=== PATIENT | female | born 1950 | race Caucasian/White ===

== ENCOUNTER 2021-06-06 18:10 | Inpatient (IN) | payer MEDICARE ==
[2021-06-06] VITALS (14 sets, daily range): BP systolic 96–184; BP diastolic 57–120
[~2021-06-06] VITALS: Ht 160 cm; Wt 108.0 kg
--- NOTE | 2021-06-06 18:10 | NUR ---
Arrival: Pt. arrived via EMS; Pt is alert and oriented x4, oriented pt to room and place. To obtain EKG stat and send to Dr. Best. HR in 140s-150s afib. BP132/78. RR 32. Notified Dr. Best and Michael of pt arrival. Oriented pt to use of call light.
--- NOTE | 2021-06-06 18:56 | PCM.EKG ---
[facility] Test Date: 2021-06-06 Test Time: 18:17:21 Pat Name: DUNG HEDRICK Department: Room: ICU6 A Gender: F Public Information Relations Manager: : 1950 Requested By: EMELYN GALICIA Order Number: [id number] Reading MD: Measurements Intervals [place] Rate: 137 P: [place]: QRS: 57 QRSD: 71 T: 91 QT: 282 QTc: 426 Interpretive Statements Atrial fibrillation Nonspecific repol abnormality, diffuse leads Baseline wander in lead(s) V1 No previous ECG available for comparison Please click the below link to view image of tracing.
--- NOTE | 2021-06-06 19:10 | NUR ---
Received verbal report from outgoing nurse Cammie Ochoa RN. Pt in bed awake alert and stating pain in R lateral neck and pointed to R hip and stated she fell 4 days ago. Charge nurse at bedside and matter was addressed to physician Dr Sams at bed side. Pt orded consult with cardiology and Hospitalist. Assumed care of pt with other staff in room to assist in pt care.
[2021-06-06] MEDS ORDERED: HEPARIN-D5W 20,000 UNIT/500 ML 500 ML IV SCH (19:30)
[2021-06-06] MEDS ORDERED: HEPARIN IV ONE (19:30)
[2021-06-06] MEDS ORDERED: CORDARONE ONE ×2 (19:39→19:40)
[2021-06-06] MEDS ORDERED: NS 250ML 250 ML ONE (19:40)
[2021-06-06] MEDS ORDERED: CORDARONE 150 MG in D5W 100ML 100 ML IV ONE (19:50)
--- NOTE | 2021-06-06 19:50 | PCM.HP ---
History of Present Illness Reason for Visit: Shortness of breath and chest pain History of Present Illness 70-year-old female with past medical history of coronary artery disease, cardiac stent, hypertension, diabetes, chronic kidney disease stage IV, hyperlipidemia, among others presented to an outside emergency room with shortness of breath and chest pain for the last 3 days. Work-up in the emergency room patient was found to be in A. fib with RVR with heart rate in the 170s. High-sensitivity troponin elevated. Requested transfer the patient to our medical facility for further management and cardiology consultation. In the emergency room patient received metoprolol, Plavix, Lovenox. When the patient arrived to our intensive care unit patient was still in A. fib with RVR with heart rate in the 140s. Fruit Harvester consulted. Patient is being admitted hospital for further management. Past Medical History Cardiac: CAD, HTN, Hyperlipidemia Endocrine: Diabetes Past Surgical History: No pertinent hx Past Social History Smoke: No Alcohol: none Review of Systems Respiratory: Shortness of breath Cardiovascular: Chest Pain, Palpitations Allergies: Coded Allergies: Sulfa (Sulfonamide Antibiotics) (Verified Allergy, Unknown, 06/06/21) Exam Vital Signs Vital Signs Date Time Temp Pulse Resp B/P (MAP) Pulse Ox O2 Delivery O2 Flow Rate FiO2 06/06/21 18:57 98.8 143 37 06/06/21 18:45 132/86 (101) General Appearance: Oriented X3, moderate distress HEENT: Atraumatic, PERRLA Respiratory: Other (Few bibasilar crackles) Cardiovascular: Other (Irregular irregular tachycardic) Extremities: No clubbing, No cyanosis Skin: No lesions Neuro: Normal speech, Normal tone Psych/Mental Status: Mental status NL, Mood NL Assessment/Plan Assessment/Plan Assessment/Plan 70-year-old female with past medical history of coronary artery disease, cardiac stent, hypertension, diabetes, chronic kidney disease stage IV, hyperlipidemia, among others presented to an outside emergency room with shortness of breath and chest pain for the last 3 days. Work-up in the emergency room patient was found to be in A. fib with RVR with heart rate in the 170s. High-sensitivity troponin elevated. Requested transfer the patient to our medical facility for further management and cardiology consultation. In the emergency room patient received metoprolol, Plavix, Lovenox. When the patient arrived to our intensive care unit patient was still in A. fib with RVR with heart rate in the 140s. Fruit Harvester consulted. Patient is being admitted hospital for further management. Plan admit to ICU Consult cardiology for evaluation further recommendations We will start IV IV amiodarone as per cardiology Heparin drip 2D echo We will continue to trend troponin We will check electrolytes, Magnesium, BNPand replete as needed GI prophylaxis pantoprazole DVT prophylaxis Heparin Reconcile home meds Expect length of stay more than 2 midnights Patient presenting with potentially life-threatening condition, critical care time spent examining the patient, reviewing labs, images, discussing the case with emergency room physician, theater company producer, LOCAL SALES MANAGER, documentation 70 minutes Problems: (1) NSTEMI (non-ST elevated myocardial infarction) ICD Code: I21.4 - Non-ST elevation (NSTEMI) myocardial infarction SNOMED: 43448313 (2) Atrial fibrillation, rapid ICD Code: I48.91 - Unspecified atrial fibrillation SNOMED: 755485654 (3) CKD stage 4 due to type 1 diabetes mellitus ICD Code: E10.22 - Type 1 diabetes mellitus with diabetic chronic kidney disea se; N18.4 - Chronic kidney disease, stage 4 (severe) SNOMED: 91054075, 04060398171599 (4) Diabetes ICD Code: E11.9 - Type 2 diabetes mellitus without complications SNOMED: 31394231 MATT SERRATO MD Jun 06, 2021 19:50
[2021-06-06 19:58] LABS: MEAN CORP HGB 29.1 pg (26-34); RED CELL DISTRIBUTION WIDTH 14.6 % (11.5-14.5)
[2021-06-06] MEDS ORDERED: NEXTERONE 360 MG/200 ML BAG 200 ML IV SCH (20:00)
[2021-06-06] MEDS ORDERED: DEXTROSE 50%-WATER SYRINGE IV PRN (20:00)
[2021-06-06] MEDS ORDERED: D5W 1000ML 1,000 ML IV PRN (20:00)
[2021-06-06] MEDS ORDERED: D5W IV SCH (20:00)
[2021-06-06] MEDS ORDERED: CORDARONE IV SCH (20:00)
--- NOTE | 2021-06-06 20:00 | NUR ---
16FR CHAUHAN CATHETER INSERTED USING STERILE TECHNIQUE. TUBING SECURED TO RT LEG USING STAT-LOCK. CATHETER IS PATENT AND DRAINING YELLOW URINE TO GRAVITY. PT TOLERATED PROCEDURE WELL.
[2021-06-06 20:10] LABS: CARBON DIOXIDE 25.3 mmol/L (20.0-32)
[2021-06-06 20:39] LABS: BILIRUBIN,URINE NEGATIVE (NEGATIVE); UROBILINOGEN,URINE 0.2 E.U./dL (0.2)
--- NOTE | 2021-06-06 20:58 | DIREP ---
PROCEDURE:CHEST 1 VIEW COMPARISON:None. INDICATIONS:sob FINDINGS: LUNGS/PLEURA:Mild interstitial thickening is seen throughout both lungs with infiltrate in the left infrahilar region of the left lung. VASCULATURE:Normal. Unremarkable pulmonary vasculature. CARDIAC:Normal. No cardiac silhouette abnormality or cardiomegaly. MEDIASTINUM:Normal. No visible mass or adenopathy. BONES:Normal. No fracture or visible bony lesion. OTHER:Negative. CONCLUSION:There are mild increased interstitial markings bilaterally with infiltrate in the left infrahilar region of the left lung. Dictated by: Camacho Flores M.D. on 06/06/2021 at 08:56 PM
[2021-06-06] MEDS: HUMALOG SQ SCH (21:00)
[2021-06-06] MEDS ORDERED: LASIX IV STA ×2 (22:16→22:40)
[2021-06-06] MEDS ORDERED: TOPROL XL PO STA (22:16)
--- NOTE | 2021-06-06 22:50 | NUR ---
TELEPHONE ORDER PER DR GALICIA: CONTINUE TO INFUSE AMIODARONE GTT @ 1MG/MIN. TELEPHONE ORDER RBAV.
--- NOTE | 2021-06-06 23:45 | NUR ---
pt cont to complaint of headache 9/10 medicated per mar
[2021-06-07] VITALS (56 sets, daily range): BP systolic 94–162; BP diastolic 47–111
[2021-06-07] MEDS ORDERED: NEXTERONE 360 MG/200 ML BAG 200 ML IV SCH (02:00)
[2021-06-07] MEDS: MORPHINE SULFATE IV PRN ×2 (03:43→23:45)
[2021-06-07] MEDS: TYLENOL PO PRN ×2 (03:53→11:19)
[2021-06-07] MEDS: HUMALOG SQ SCH ×4 (07:30→22:00)
[2021-06-07 07:51] LABS: BASOPHIL % 0.3 % (0.0-0.2); EOSINOPHIL % 0.4 % (0.0-5.0); LYMPHOCYTES # 2.1 10^3/uL1 (1.0-4.8); LYMPHOCYTES % 19.9 % (24.0-44.0); MEAN CORP HGB 29.3 pg (26-34); MONOCYTES # 0.6 10^3/uL (0.3-0.8); MONOCYTES % 5.2 % (5.0-12.0); NEUTROPHIL # 7.8 10^3/uL (1.8-7.7); NEUTROPHILS % 74.2 % (41.0-85.0); RED CELL DISTRIBUTION WIDTH 14.6 % (11.5-14.5)
[2021-06-07 07:54] LABS: CARBON DIOXIDE 28.1 mmol/L (20.0-32)
--- NOTE | 2021-06-07 08:42 | PCM.EKG ---
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
[2021-06-07] MEDS: ZESTRIL PO SCH (09:00)
[2021-06-07] MEDS: PROTONIX PO SCH (09:00)
[2021-06-07] MEDS: LASIX IV SCH (09:00)
[2021-06-07] MEDS: ASPIRIN PO SCH (09:00)
[2021-06-07] MEDS ORDERED: TOPROL XL PO SCH (09:00)
--- NOTE | 2021-06-07 11:07 | PRM.PN ---
Subjective Subjective Date: Jun 07, 2021 Time: 09:00 Subjective Patient remains short of breath. Tachycardic. Patient also complained of right hip pain. She said that she fell a few days prior to presentation to the emergency room. X-ray of the hip was not done in the emergency room. Will or claudia. Also get an x-ray of his cervical spine because she is complaining of right neck pain. Patient History: Alzheimer's disease G8 SISTER Cerebrovascular disorder G8 MOTHER G8 FATHER Chronic obstructive pulmonary disease G8 BROTHER Congestive heart failure G8 MOTHER G8 FATHER Diabetes mellitus G8 MOTHER G8 FATHER FH: IA (myocardial infarction) G8 MOTHER G8 FATHER G8 BROTHER FH: cancer G8 BROTHER G8 SISTER G8 SISTER FH: cancer G8 BROTHER G8 SISTER G8 SISTER Unknown Review of Systems Respiratory: Shortness of breath Cardiovascular: Chest Pain, Palpitations Musculoskeletal: other (Hip pain), neck pain Allergies: Coded Allergies: Sulfa (Sulfonamide Antibiotics) (Verified Allergy, Unknown, 06/06/21) Objective Vitals and I/O Vital Sign - Last 24 Hours 06/06/21 06/06/21 06/06/21 06/06/21 18:42 18:45 18:57 19:15 Temp 98.8 98.8 Pulse 141 141 143 Resp 45 38 37 B/P (MAP) 132/86 (101) 06/06/21 06/06/21 06/06/21 06/06/21 19:15 19:30 19:32 19:45 Pulse 138 157 153 141 Resp 39 49 46 34 B/P (MAP) 169/120 (136) 143/102 (116) 06/06/21 06/06/21 06/06/21 06/06/21 20:00 20:00 20:01 20:15 Pulse 136 150 160 Resp 33 20 20 B/P (MAP) 162/119 (133) O2 Delivery Room Air 06/06/21 06/06/21 06/06/21 06/06/21 20:16 20:30 20:45 21:00 Pulse 151 143 139 139 Resp 28 31 30 35 B/P (MAP) 140/90 (107) 171/111 (131) 161/87 (111) 184/85 (118) 06/06/21 06/06/21 06/06/21 06/06/21 21:45 22:16 22:30 22:31 Pulse 138 148 149 Resp 16 11 27 B/P (MAP) 150/75 96/60 (72) Pulse Ox 96 O2 Delivery Nasal Cannula O2 Flow Rate 2.00 06/06/21 06/06/21 06/06/21 06/06/21 22:43 22:45 22:47 22:49 Pulse 151 148 147 144 Resp 71 98 82 B/P (MAP) 150/75 (100) 06/06/21 06/06/21 06/06/21 06/06/21 23:00 23:01 23:15 23:17 Pulse 140 137 127 152 Resp 92 35 B/P (MAP) 165/81 (109) 149/57 (87) Pulse Ox 97 96 06/06/21 06/06/21 06/06/21 06/06/21 23:30 23:31 23:45 23:46 Pulse 159 139 161 160 Resp 34 34 B/P (MAP) 140/64 (89) 143/70 (94) Pulse Ox 95 95 96 96 06/07/21 06/07/21 06/07/21 06/07/21 00:00 00:01 00:01 00:15 Pulse 151 158 151 Resp 34 28 B/P (MAP) 124/68 (86) Pulse Ox 97 97 97 O2 Delivery Room Air 06/07/21 06/07/21 06/07/21 06/07/21 00:16 00:30 00:31 00:45 Pulse 151 151 127 164 B/P (MAP) 130/111 (117) 132/83 (99) Pulse Ox 97 98 96 97 06/07/21 06/07/21 06/07/21 06/07/21 00:47 01:00 01:01 01:15 Pulse 158 163 154 148 Resp 69 36 29 B/P (MAP) 162/88 (112) 139/75 (96) Pulse Ox 97 99 97 97 06/07/21 06/07/21 06/07/21 06/07/21 01:16 01:30 01:31 01:45 Pulse 154 152 150 161 Resp 34 46 B/P (MAP) 157/86 (109) 148/106 (120) Pulse Ox 97 95 96 95 06/07/21 06/07/21 06/07/21 06/07/21 01:46 02:00 02:01 02:15 Pulse 147 161 150 154 Resp 31 31 30 B/P (MAP) 135/70 (91) 121/76 (91) Pulse Ox 95 98 95 95 06/07/21 06/07/21 06/07/21 06/07/21 02:16 02:30 02:31 02:45 Pulse 158 151 146 152 Resp 30 28 28 30 B/P (MAP) 142/74 (96) 133/87 (102) Pulse Ox 96 97 97 94 06/07/21 06/07/21 06/07/21 06/07/21 02:46 03:00 03:02 03:46 Pulse 153 148 142 150 Resp 31 35 32 40 B/P (MAP) 150/87 (108) 110/82 (91) 138/104 (115) Pulse Ox 94 90 91 93 06/07/21 06/07/21 06/07/21 06/07/21 04:00 04:01 04:15 09:00 Pulse 164 158 163 150 Resp 28 31 27 B/P (MAP) 98/49 (65) 116/73 (87) 131/80 Pulse Ox 96 96 97 06/07/21 06/07/21 09:00 09:00 B/P (MAP) 131/80 131/80 Intake and Output 06/07/21 06:59 Intake Total 103 ml Output Total 2520 ml Balance -2417 ml General: Oriented X3, moderate distress HEENT: Atraumatic, PERRLA Lungs: Other (Few bibasilar crackles) Heart: Other (Irregular irregular tachycardic) Extremities: No clubbing, No cyanosis, Other (Hip tenderness) Neuro: Normal speech, Normal tone Psych/Mental Status: Mental status NL, Mood NL All Results(Lab/Rad) Laboratory Tests Test 06/06/21 19:32 06/06/21 21:56 06/07/21 01:26 06/07/21 07:27 White Blood Count 9.6 10^3/uL 10.6 10^3/uL Red Blood Count 4.16 10^6/uL 4.06 10^6/uL Hemoglobin 12.1 g/dL 11.9 g/dL Hematocrit 38.3 % 37.8 % Mean Corpuscular Volume 92.1 fL 93.1 fL Mean Corpuscular Hemoglobin 29.1 pg 29.3 pg Mean Corpuscular Hemoglobin Concent 31.6 g/dL 31.5 g/dL Red Cell Distribution Width 14.6 % 14.6 % Platelet Count 168 10^3/uL 180 10^3/uL Mean Platelet Volume 11.3 fL 11.3 fL Sodium Level 143 mmol/L 140 mmol/L Potassium Level 4.1 mmol/L 4.1 mmol/L Chloride Level 107.0 mmol/L 104.0 mmol/L Carbon Dioxide Level 25.3 mmol/L 28.1 mmol/L Anion Gap 14.8 12.0 Blood Urea Nitrogen 28 mg/dL 29 mg/dL Creatinine 1.92 mg/dL 2.43 mg/dL Estimated GFR () 31.3 23.9 Est GFR (CKD-EPI)(Non-Afr Cymraes) 25.9 19.7 BUN/Creatinine Ratio 14.0 11.0 Glucose Level 121 mg/dL 183 mg/dL Calcium Level 8.7 mg/dL 8.9 mg/dL Magnesium Level 1.7 mg/dL Total Bilirubin 0.6 mg/dL 0.9 mg/dL Aspartate Amino Transf (AST/SGOT) 14 U/L 41 U/L Alanine Aminotransferase (ALT/SGPT) 24 U/L 31 U/L Alkaline Phosphatase 118 U/L 126 U/L Troponin I High Sensitivity 225 ng/L 220 ng/L 176 ng/L Pro-B-Type Natriuretic Peptide 5159 pg/mL Total Protein 7.2 g/dL 7.1 g/dL Albumin 2.9 g/dL 2.7 g/dL Globulin 4.3 4.4 Albumin/Globulin Ratio 0.674 0.613 Thyroid Stimulating Hormone (TSH) 3.598 mIU/mL Bedside Glucose 121 Activated Partial Thromboplast Time 31.9 SEC 32.9 SEC Neutrophils (%) (Auto) 74.2 % Lymphocytes (%) (Auto) 19.9 % Monocytes (%) (Auto) 5.2 % Neutrophils # (Auto) 7.8 10^3/uL Lymphocytes # (Auto) 2.10 10^3/uL1 Monocytes # (Auto) 0.6 10^3/uL Absolute Immature Granulocyte (auto 0.03 10^3 u/L Absolute Eosinophils (auto) 0.0 10^3/uL Immature Granulocytes % 0.30 % Eosinophils % 0.4 % Basophils % 0.3 % Basophils # 0.0 10^3/uL Current Medications Medications (Trade) Dose Ordered Sig/Deloris Route PRN Reason Start Time Stop Time Status Last Admin Dose Admin Heparin Sodium (Porcine) (Heparin) 5,000 unit OT ONCE IV 06/06/21 19:30 06/06/21 19:38 DC Heparin Sodium/ Dextrose 500 ml @ 0 mls/hr TITRATE IV 06/06/21 19:30 07/06/21 19:29 06/05/21 21:40 Amiodarone HCL/ Dextrose 200 ml @ 34 mls/hr OT IV 06/07/21 02:00 07/07/21 01:59 Amiodarone HCL/ Dextrose 200 ml @ 17 mls/hr OT IV 06/06/21 20:00 07/06/21 19:59 Amiodarone HCl 150 mg/Dextrose 103 ml @ 600 mls/hr OT ONCE IV 06/06/21 19:50 06/06/21 20:00 DC 06/06/21 20:38 Amiodarone HCl (Nexterone) 150 mg STK-MED ONCE .ROUTE 06/06/21 19:39 06/06/21 19:40 DC Acetaminophen (Tylenol) 325 mg Q4H PRN PO PAIN 1 - 3 06/06/21 20:00 07/06/21 19:59 06/07/21 03:53 Pantoprazole Sodium (Protonix) 40 mg DAILY PO 06/07/21 09:00 07/07/21 08:59 06/07/21 09:00 Insulin Human Lispro (Humalog) 0-140 0 Units 141-200... ACHS SQ 06/06/21 21:00 07/06/21 20:59 06/07/21 07:30 Dextrose 1,000 ml @ 100 mls/hr Q10H PRN IV hypoglycemia 06/06/21 20:00 07/06/21 19:59 Dextrose (Dextrose 50%-Water Syringe) 25 ml PRN PRN IV hypoglycemia 06/06/21 20:00 07/06/21 19:59 Aspirin (Aspirin) 325 mg DAILY PO 06/07/21 09:00 07/07/21 08:59 06/07/21 09:00 Amiodarone HCl (Nexterone) 150 mg STK-MED ONCE .ROUTE 06/06/21 19:40 2/8/22 19:41 DC Sodium Chloride 250 ml @ STK-MED ONCE .ROUTE 06/06/21 19:40 06/06/21 19:41 DC Metoprolol Succinate (Toprol Xl) 50 mg STAT STAT PO 06/06/21 22:16 06/06/21 22:30 DC Metoprolol Succinate (Toprol Xl) 50 mg DAILY PO 06/07/21 09:00 07/07/21 08:59 06/07/21 09:00 Furosemide (Lasix) 40 mg DAILY IV 06/07/21 09:00 07/07/21 08:59 06/07/21 09:00 Furosemide (Lasix) 40 mg STAT STAT IV 06/06/21 22:16 06/06/21 22:30 DC 06/06/21 22:16 Lisinopril (Zestril) 20 mg DAILY PO 06/07/21 09:00 07/07/21 08:59 06/07/21 09:00 Furosemide (Lasix) 40 mg STAT STAT IV 06/06/21 22:40 06/06/21 22:45 DC Morphine Sulfate (Morphine Sulfate) 1 mg Q4H PRN IV PAIN 7 - 10 06/06/21 23:00 07/06/21 22:59 06/07/21 03:43 Assessment/Plan Assessment/Plan Assessment/Plan 70-year-old female with past medical history of coronary artery disease, cardiac stent, hypertension, diabetes, chronic kidney disease stage IV, hyperlipidemia, among others presented to an outside emergency room with shortness of breath and chest pain for the last 3 days. Work-up in the emergency room patient was found to be in A. fib with RVR with heart rate in the 170s. High-sensitivity troponin elevated. Requested transfer the patient to our medical facility for further management and cardiology consultation. In the emergency room patient received metoprolol, Plavix, Lovenox. When the patient arrived to our intensive care unit patient was still in A. fib with RVR with heart rate in the 140s. Wire Coating Machine Operator consulted. Patient is being admitted hospital for further management. Plan admit to ICU Wire Coating Machine Operator consulted Started on Lasix, creatinine trending up We will consult nephrology, patient has YARED/CKD. Heparin drip Rate and rhythm control as per cardiology Pelvic x-ray Cervical spine x-ray DVT prophylaxis Heparin Patient presenting with potentially life-threatening condition, critical care time spent examining the patient, reviewing labs, images, discussing the case with PRODUCTION LINE WELDER, documentation 35 minutes. Patient presenting with potentially life-threatening condition, critical care time spent examining the patient, reviewing labs, images, discussing the case with emergency room physician, chlorination operator, PRODUCTION LINE WELDER, documentation 70 minutes Problems: (1) NSTEMI (non-ST elevated myocardial infarction) ICD Code: I21.4 - Non-ST elevation (NSTEMI) myocardial infarction SNOMED: 95880451 (2) Atrial fibrillation, rapid ICD Code: I48.91 - Unspecified atrial fibrillation SNOMED: 048413424 (3) CKD stage 4 due to type 1 diabetes mellitus ICD Code: E10.22 - Type 1 diabetes mellitus with diabetic chronic kidney disease; N18.4 - Chronic kidney disease, stage 4 (severe) SNOMED: 92347003, 35049309579605 (4) Diabetes ICD Code: E11.9 - Type 2 diabetes mellitus without complications SNOMED: 54527668 MATT SERRATO MD Jun 07, 2021 11:07
[2021-06-07] MEDS ORDERED: BETAPACE ONE (13:05)
[2021-06-07] MEDS ORDERED: BETAPACE PO STA (13:28)
[2021-06-07] MEDS ORDERED: SUBLIMAZE IV ONE (13:30)
--- NOTE | 2021-06-07 18:20 | PCM.EKG ---
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
--- NOTE | 2021-06-07 18:59 | DIREP ---
PROCEDURE:XR SPINE CERVICAL 2 OR 3 VIEWS COMPARISON:None. INDICATIONS:fall TECHNIQUE:AP, lateral, swimmer's, and dens views of the cervical spine are provided. FINDINGS: ALIGNMENT:Straightening of the spine may be positional or secondary to muscle spasm. VERTEBRAE:Endplate osteophytes throughout the cervical spine. No visible compression fracture. DISK SPACES:Normal. CERVICAL RIBS:None. OTHER:Normal. CONCLUSION:Mild degenerative changes. No visible compression fracture. Not all of the lower spinous processes are well seen. If there is point tenderness at the spinous processes recommend cervical spine CT correlation to exclude fracture. Dictated by: Davin Carlson M.D. on 06/07/2021 at 06:57 PM
--- NOTE | 2021-06-07 19:00 | DIREP ---
PROCEDURE:XRAY PELVIS 1-2 VWS COMPARISON:None. INDICATIONS:fall FINDINGS: BONES:Bilateral acetabular osteophyte formation. Sclerosis and osteophytes at the symphysis pubis. Enthesophyte at the ischial tuberosities, iliac crests and greater trochanters. JOINTS:Normal. SOFT TISSUES:Normal. OTHER:No additional findings. CONCLUSION:Degenerative changes. No visible displaced fracture. Dictated by: Davin Carlson M.D. on 06/07/2021 at 06:58 PM
--- NOTE | 2021-06-07 19:00 | NUR ---
Report received. pt A&OX4, c/o neck pain and body soreness, denies chest pain and SOB. Heparin drip infusing at 1400u/hr. carter with adequate urinary output. will continue to monitor
--- NOTE | 2021-06-07 21:05 | PCM.ECHO ---
APPROVED REPORT EXAM: Comprehensive 2D, Doppler, and color-flow Echocardiogram. Patient Location: IN-PATIENT Indications Atrial Fibrillation 2D Dimensions LVOT Diameter 2.16 (1.8-2.4cm) LVEF(%) 35.85 (>50%) M-Mode Dimensions RVDd 1.65 (2.1-3.2cm) Left Atrium(MM) 4.50 (2.5-4.0cm) IVSd 1.15 (0.7-1.1cm) Aortic Root 2.75 (2.2-3.7cm) LVDd 3.60 (4.0-5.6cm) Aortic Cusp Exc 1.35 (1.5-2.0cm) PWd 0.55 (0.7-1.1cm) MV EPSS 0.49 (<0.5cm) IVSs 1.60 cm FS (%) 19.30 % LVDs 2.90 (2.0-3.8cm) ESV(Teich) 32.88 ml PWs 1.40 cm LVEF(%) 40.57 (>50%) Volumes Biplane 2D LV Volumes Biplane 2D LA Volumes LVEDv A4C 61.53 mL LA ESV Index LVESv A4C 39.47 mL Aortic Valve AoV Peak Earl. 1.20 m/s AoV VTI 19.05 cm AO Peak GR. 6.10 mmHg AO Mean GR. 3.80 mmHg LVOT VTI 15.54 cm LVOT Peak Earl. 0.84 m/s MARVEL(VTI)/BSA 2.98 cm2/m2 MARVEL (VTI) 2.98 cm2 Mitral Valve MR Peak Gr. 87.45mmHg Pulmonary Valve PV Peak Velocity 0.75m/s PV Peak Grad. 2.45mmHg RVOT VTI 12.06cm Tricuspid Valve TR P. Velocity 2.70m/s RAP ESTIMATE 10.00mmHg TR Peak Gr. 29.63mmHg RVSP 39.63mmHg LEFT VENTRICLE The left ventricle is normal size. Left ventricular systolic function is moderately decreased. There is normal left ventricular wall thickness. Significant regional wall motion abnormalities are noted. There is no ventricular septal defect visualized. No left ventricle thrombus noted on this study. LVEF is 40%. RIGHT VENTRICLE The right ventricle is normal size. Right ventricular systolic function is moderately reduced. There is normal right ventricular wall thickness. ATRIA The left atrium size is normal. Right atrium is severely dilated. The interatrial septum is intact with no evidence for an atrial septal defect. AORTIC VALVE The aortic valve is normal in structure. There is no aortic valvular stenosis. Moderate aortic regurgitation. There is no aortic valvular vegetation. MITRAL VALVE The mitral valve is normal in structure. There is no mitral valve stenosis. Severe mitral regurgitation. There is no evidence of mitral valve vegetations. TRICUSPID VALVE The tricuspid valve is normal in structure. There is no tricuspid valve stenosis. Moderate to severe tricuspid regurgitation Moderate pulmonary hypertension. There is no tricuspid valve vegetations. PULMONIC VALVE Pulmonic valve is not well visualized. There is no pulmonic valvular stenosis. Moderate pulmonic regurgitation. GREAT VESSELS The aortic root is normal in size. Pulmonary artery is not well visualized. Aortic arch is not well visualized. IVC is not well visualized. PERICARDIUM There is no pericardial effusion. There is no pleural effusion. Other Information Study Quality: Fair <Conclusion> Left ventricular systolic function is moderately decreased. LVEF is 40%. Significant regional wall motion abnormalities are noted. Right atrium is severely dilated. Moderate aortic regurgitation. Severe mitral regurgitation. Moderate to severe tricuspid regurgitation Moderate pulmonary hypertension. Moderate pulmonic regurgitation. Electronically signed by : EMELYN GALICIA. 06/07/2021 21:04:25
[2021-06-07] MEDS: BETAPACE PO SCH (21:10)
--- NOTE | 2021-06-07 22:00 | NUR ---
Heparin drip increased to 1500 u/hr per protocol
--- NOTE | 2021-06-07 22:12 | CNH ---
DATE OF CONSULTATION: 06/07/2021 DICTATOR NAME: EMELYN GALICIA DO REASON FOR CONSULTATION: New-onset atrial fibrillation with rapid ventricular response/acute non-ST elevation myocardial infarction. HISTORY OF PRESENT ILLNESS: This is a 70-year-old female who initially presented to an outside standalone Emergency Room with progressively worsening shortness of breath and chest pain, which she has been experiencing 3 days prior. Upon presentation, EKG done in the outside facility revealed atrial fibrillation with rapid ventricular response. She was also noted to have elevated troponins. She was then transferred to [facility] for cardiac evaluation. At this time, she is chest pain free. She has been started on amiodarone drip as well as heparin drip. Initial high-sensitive troponin was noted to be 225, but has slowly trended down to 176. PAST MEDICAL HISTORY: Significant for: 1. Coronary artery disease, status post PCI in the past -- 15 years ago. 2. Hypertension. 3. Diabetes mellitus. 4. Chronic kidney disease, stage 4. 5. Hyperlipidemia. PAST SURGICAL HISTORY: Cardiac catheterization with PCI done 15 years ago to an unknown vessel. ALLERGIES: SULFONAMIDE ANTIBIOTICS. MEDICATIONS: She takes at home, see MAR. FAMILY HISTORY: She denies any family history of premature coronary artery disease or sudden cardiac . SOCIAL HISTORY: She denies tobacco use, denies illicit drug use, denies alcohol use. REVIEW OF SYSTEMS: As per HPI and as per previous records. All systems reviewed, negative for interval change. PHYSICAL EXAMINATION: VITAL SIGNS: Blood pressure is 131/80, respiratory rate is 18, pulse is 150, pulse oximetry is 98% on 2 liters. GENERAL: She is in no apparent distress, alert and oriented x 3. HEENT: Normocephalic, atraumatic. Extraocular muscles intact. Pupils equally round, reactive to light and accommodation. CARDIAC: S1, S2, irregularly irregular. No gallops, murmurs, rubs or clicks. LUNGS: Clear to auscultation bilaterally. No wheezing, rhonchi or rales. ABDOMEN: Soft, obese, nontender, nondistended. Positive bowel sounds in all 4 quadrants. EXTREMITIES: No cyanosis, no clubbing, +1 pitting edema bilaterally. NEUROLOGIC: No neurological deficits. Sensation is intact. IMPRESSION: 1. New-onset atrial fibrillation with rapid ventricular response. 2. CHADS2-VASc score of 8. 3. New-onset decompensated heart failure secondary to unknown etiology at this time. 4. Known history of coronary artery disease, status post percutaneous coronary intervention in the past to an unknown vessel. 5. Hypertension. 6. Hyperlipidemia. 7. Diabetes mellitus. 8. Chronic kidney disease, stage 4. 9. Morbid obesity. RECOMMENDATIONS: This is a 70-year-old female who was transferred from an outside standalone ER where she presented with atrial fibrillation with rapid ventricular response as well as decompensated heart failure. She is currently on amiodarone drip. I am going to start her on sotalol 80 mg p.o. b.i.d. She was initially on Toprol-XL, which has since been discontinued. She will be started on Lasix 40 mg IV daily, strict I's and O's, daily weights as well as fluid restriction to 1 liter a day. She will also be kept on sodium restriction. She will be started on lisinopril 20 mg p.o. daily. I would obtain a 2D echo to evaluate her left ventricular ejection fraction and structural integrity of her heart. I will check a thyroid panel. She is currently on heparin drip given her high CHADS2-VASc score. Eventually, she would benefit from oral anticoagulation for primary prevention of systemic thromboembolism. The goal at this time is to keep her heart rate less than 120 beats per minute. She will be kept on sotalol 80 mg p.o. b.i.d. Eventually, when she becomes euvolemic, she will be set up for left heart catheterization to rule out an ischemic substrate. I would recommend to continue to trend her troponins. Initial set of troponin was 225, but has trended down to 176. Further recommendations will be made based on her overall clinical course. Markell FREDERICK D.O. DR: PALOMA MAGÑAA: [id number] RECEIPT: [id number]
[2021-06-08] VITALS (29 sets, daily range): BP systolic 98–149; BP diastolic 50–82
--- NOTE | 2021-06-08 | NUR ---
pt placed NPO for planned procedure in the AM.
--- NOTE | 2021-06-08 02:21 | NUR ---
Lab at bedside. APTT obtained , will monitor results.
[2021-06-08 02:31] LABS: BASOPHIL % 0.4 % (0.0-0.2); EOSINOPHIL # 0.1 10^3/uL (0.0-0.2); EOSINOPHIL % 0.8 % (0.0-5.0); LYMPHOCYTES % 26.9 % (24.0-44.0); MEAN CORP HGB 29.1 pg (26-34); MONOCYTES # 0.5 10^3/uL (0.3-0.8); MONOCYTES % 4.3 % (5.0-12.0); NEUTROPHIL # 7.3 10^3/uL (1.8-7.7); NEUTROPHILS % 67.3 % (41.0-85.0); PLATELET COUNT 190 10^3/uL (150-400); RED CELL DISTRIBUTION WIDTH 14.7 % (11.5-14.5)
[2021-06-08 06:13] LABS: CARBON DIOXIDE 23.5 mmol/L (20.0-32)
--- NOTE | 2021-06-08 06:56 | NUR ---
PTT PER NIGHT RN, NEXT PTT IS DUE AT 0730, 4 HOURS POST LAST HEPARIN INCREASE.
[2021-06-08] MEDS: HUMALOG SQ SCH ×4 (07:34→21:00)
[2021-06-08] MEDS ORDERED: XYLOCAINE ONE (08:43)
[2021-06-08] MEDS ORDERED: VERSED ONE (08:44)
[2021-06-08] MEDS ORDERED: SUBLIMAZE ONE (08:44)
[2021-06-08] MEDS: ASPIRIN PO SCH (09:06)
[2021-06-08] MEDS: TYLENOL PO PRN ×2 (09:07→21:22)
[2021-06-08] MEDS: BETAPACE PO SCH ×2 (09:07→21:22)
[2021-06-08] MEDS: PROTONIX PO SCH (09:08)
[2021-06-08] MEDS: LASIX IV SCH (09:08)
[2021-06-08] MEDS: ZESTRIL PO SCH (09:08)
--- NOTE | 2021-06-08 09:08 | NUR ---
AM MEDICATIONS PRE HEART CATH @ [address] GALICIA, GIVE ALL SCHEDULED AM MEDS ON EMAR PRIOR TO HEART CATH
[2021-06-08] MEDS ORDERED: MORPHINE SULFATE ONE (11:21)
[2021-06-08] MEDS: MORPHINE SULFATE IV PRN (11:22)
[2021-06-08] MEDS ORDERED: NS 1000ML 1,000 ML ONE (11:53)
--- NOTE | 2021-06-08 12:19 | NUR ---
LAND LEASING INFORMATION CLERK @ 6161 PT TAKEN TO LAND LEASING INFORMATION CLERK VIA STRETCHER ACCOMPANIED BY GOOD RAZO. ALL IV LINES NS LOCKED, HEPARIN DRIP STOPPED AND SENT TO LAND LEASING INFORMATION CLERK WITH PT. PT PLACED ON ZOLL MONITOR FOR TRANSFER, VITALS WNL PRIOR TO LEAVING ICU.
--- NOTE | 2021-06-08 12:55 | NUR ---
RETURN FROM PEBBLE MILL OPERATOR @ 1255 PT ARRIVED TO ICU FROM PEBBLE MILL OPERATOR VIA STRETCHER ACCOMPANIED BY HERMINIO, ON ZOLL MONITOR. NO COMPLAINTS PER PT AT THIS TIME, NO PAIN COMPLAINTS. HERMINIO REPORTED PER DR GALICIA, AVIONICS SYSTEM ENGINEER, LAD, LCX AND RCA WERE 35-40% OCCLUDED, NO INTERVENTIONS DONE AND TO BE MEDICALLY MANAGED; HEPARIN DRIP DC, STARTING ELIQUIS 5 MG THIS EVENING; NS RUNNING AT 100ML/H - TO BE CONTINUED FOR 6 MORE HR.
--- NOTE | 2021-06-08 14:29 | PRM.PN ---
Subjective Subjective Date: Jun 08, 2021 Time: 09:00 Subjective Still shortness of breath with minimal exertion. Heart rate better controlled. Worsening kidney function/creatinine. I requested nephrology consultation to help with worsening kidney function and the patient who needs heart cath. Case discussed with instrument room technician. Patient History: Alzheimer's disease G8 SISTER Cerebrovascular disorder G8 MOTHER G8 FATHER Chronic obstructive pulmonary disease G8 BROTHER Congestive heart failure G8 MOTHER G8 FATHER Diabetes mellitus G8 MOTHER G8 FATHER FH: MA (myocardial infarction) G8 MOTHER G8 FATHER G8 BROTHER FH: cancer G8 BROTHER G8 SISTER G8 SISTER FH: cancer G8 BROTHER G8 SISTER G8 SISTER Unknown Review of Systems Respiratory: Shortness of breath Cardiovascular: Chest Pain, Palpitations Musculoskeletal: other (Hip pain), neck pain Allergies: Coded Allergies: Sulfa (Sulfonamide Antibiotics) (Verified Allergy, Unknown, 06/06/21) Objective Vitals and I/O Vital Sign - Last 24 Hours 06/07/21 06/07/21 06/07/21 06/07/21 14:30 14:45 15:00 15:15 Pulse 89 90 94 86 Resp 18 19 16 17 Pulse Ox 100 100 100 100 06/07/21 06/07/21 06/07/21 06/07/21 15:30 15:45 16:00 16:00 Pulse 81 79 91 Resp 21 14 21 Pulse Ox 100 100 99 O2 Delivery Room Air 06/07/21 06/07/21 06/07/21 06/07/21 16:23 16:30 16:45 17:00 Pulse 91 88 87 81 Resp 37 19 20 20 B/P (MAP) 119/88 (98) 129/56 (80) 122/64 (83) 105/64 (78) Pulse Ox 100 100 100 06/07/21 06/07/21 06/07/21 06/07/21 17:15 17:30 17:46 18:30 Pulse 88 88 95 101 Resp 23 26 30 25 B/P (MAP) 115/49 (71) 115/74 (88) 131/72 (91) 133/61 (85) Pulse Ox 100 100 97 100 06/07/21 06/07/21 06/07/21 06/07/21 18:45 19:00 19:15 19:30 Pulse 104 100 98 102 Resp 28 28 27 23 B/P (MAP) 135/78 (97) 119/62 (81) 115/65 (82) 140/73 (95) Pulse Ox 100 99 100 100 06/07/21 06/07/21 06/07/21 06/07/21 19:45 20:00 20:00 20:15 Pulse 94 111 102 Resp 23 B/P (MAP) 119/50 (73) 103/63 (76) 125/56 (79) Pulse Ox 100 99 100 O2 Delivery Nasal Cannula 06/07/21 06/07/21 06/07/21 06/07/21 20:30 20:45 21:00 21:15 Pulse 109 100 106 111 Resp 23 B/P (MAP) 109/47 (67) 116/67 (83) 94/64 (74) 111/60 (77) Pulse Ox 99 100 100 99 06/07/21 06/07/21 06/07/21 06/07/21 21:30 21:33 21:45 22:00 Pulse 108 111 109 108 Resp 128 28 B/P (MAP) 110/66 (81) 118/78 (91) 133/70 (91) Pulse Ox 100 92 89 91 O2 Delivery Room Air O2 Flow Rate 2.00 06/07/21 06/08/21 06/08/21 06/08/21 22:15 01:30 01:45 02:00 Temp 98.8 Pulse 92 120 104 111 Resp 23 B/P (MAP) 111/61 (78) 139/76 (97) Pulse Ox 100 99 97 93 06/08/21 06/08/21 06/08/21 06/08/21 02:15 02:30 02:45 03:00 Pulse 110 108 115 112 Resp 28 34 B/P (MAP) 131/76 (94) Pulse Ox 90 94 94 96 06/08/21 06/08/21 06/08/21 06/08/21 03:15 03:30 03:45 04:00 Pulse 108 102 117 103 Resp 30 24 29 40 B/P (MAP) 120/72 (88) Pulse Ox 91 92 94 97 06/08/21 06/08/21 06/08/21 06/08/21 04:00 04:15 04:30 04:45 Pulse 107 101 115 Resp 28 28 26 Pulse Ox 88 89 88 O2 Delivery Nasal Cannula 06/08/21 06/08/21 06/08/21 06/08/21 05:00 05:15 05:30 05:45 Pulse 107 110 110 107 Resp 24 35 B/P (MAP) 129/74 (92) Pulse Ox 96 94 94 97 06/08/21 06/08/21 06/08/21 06/08/21 06:00 06:15 06:30 06:45 Pulse 116 120 117 113 Resp 25 B/P (MAP) 115/75 (88) Pulse Ox 95 95 98 96 O2 Delivery Room Air 06/08/21 06/08/21 06/08/21 06/08/21 07:00 07:15 07:30 07:45 Temp 99.9 Pulse 112 108 114 108 Resp 16 20 B/P (MAP) 115/82 (93) Pulse Ox 94 97 90 95 O2 Delivery Room Air 06/08/21 06/08/21 06/08/21 06/08/21 08:00 08:01 08:15 08:30 Pulse 119 110 117 129 Resp 19 B/P (MAP) 109/70 (83) Pulse Ox 94 90 93 95 O2 Delivery Room Air 06/08/21 06/08/21 06/08/21 06/08/21 08:34 08:38 08:45 09:00 Pulse 123 112 114 112 Resp 19 B/P (MAP) 116/62 (80) 134/59 (84) Pulse Ox 94 95 95 98 O2 Delivery Room Air FiO2 21 06/08/21 06/08/21 06/08/21 06/08/21 09:08 09:08 09:15 09:30 Pulse 105 110 Resp 24 B/P (MAP) 134/59 134/59 122/71 (88) Pulse Ox 98 98 O2 Delivery Room Air 06/08/21 06/08/21 06/08/21 06/08/21 09:45 10:00 10:15 10:30 Pulse 114 104 101 112 Resp 20 21 19 B/P (MAP) 98/59 (72) 112/53 (72) Pulse Ox 99 95 96 100 06/08/21 06/08/21 06/08/21 06/08/21 10:45 11:00 11:15 11:30 Pulse 102 105 101 94 Resp 15 14 20 17 B/P (MAP) 116/56 (76) 111/55 (73) Pulse Ox 90 91 92 96 O2 Delivery Room Air 06/08/21 06/08/21 06/08/21 06/08/21 11:45 12:46 13:22 13:30 Pulse 105 98 87 94 Resp 16 16 22 23 B/P (MAP) 101/55 (70) 102/50 (67) Pulse Ox 99 97 95 95 O2 Delivery Room Air Room Air O2 Flow Rate 0.00 FiO2 21 06/08/21 13:45 Pulse 100 Resp 18 Pulse Ox 96 O2 Delivery Room Air Intake and Output 06/08/21 07:00 Intake Total 1354 ml Output Total 1575 ml Balance -221 ml General: Oriented X3, moderate distress HEENT: Atraumatic, PERRLA Lungs: Other (Few bibasilar crackles) Heart: Other (Irregular irregular tachycardic) Extremities: No clubbing, No cyanosis, Other (Hip tenderness) Neuro: Normal speech, Normal tone Psych/Mental Status: Mental status NL, Mood NL All Results(Lab/Rad) Laboratory Tests Test 06/06/21 19:32 06/06/21 21:56 06/07/21 01:26 06/07/21 07:27 White Blood Count 9.6 10^3/uL 10.6 10^3/uL Red Blood Count 4.16 10^6/uL 4.06 10^6/uL Hemoglobin 12.1 g/dL 11.9 g/dL Hematocrit 38.3 % 37.8 % Mean Corpuscular Volume 92.1 fL 93.1 fL Mean Corpuscular Hemoglobin 29.1 pg 29.3 pg Mean Corpuscular Hemoglobin Concent 31.6 g/dL 31.5 g/dL Red Cell Distribution Width 14.6 % 14.6 % Platelet Count 168 10^3/uL 180 10^3/uL Mean Platelet Volume 11.3 fL 11.3 fL Sodium Level 143 mmol/L 140 mmol/L Potassium Level 4.1 mmol/L 4.1 mmol/L Chloride Level 107.0 mmol/L 104.0 mmol/L Carbon Dioxide Level 25.3 mmol/L 28.1 mmol/L Anion Gap 14.8 12.0 Blood Urea Nitrogen 28 mg/dL 29 mg/dL Creatinine 1.92 mg/dL 2.43 mg/dL Estimated GFR () 31.3 23.9 Est GFR (CKD-EPI)(Non-Afr Prydeinig) 25.9 19.7 BUN/Creatinine Ratio 14.0 11.0 Glucose Level 121 mg/dL 183 mg/dL Calcium Level 8.7 mg/dL 8.9 mg/dL Magnesium Level 1.7 mg/dL Total Bilirubin 0.6 mg/dL 0.9 mg/dL Aspartate Amino Transf (AST/SGOT) 14 U/L 41 U/L Alanine Aminotransferase (ALT/SGPT) 24 U/L 31 U/L Alkaline Phosphatase 118 U/L 126 U/L Troponin I High Sensitivity 225 ng/L 220 ng/L 176 ng/L Pro-B-Type Natriuretic Peptide 5159 pg/mL Total Protein 7.2 g/dL 7.1 g/dL Albumin 2.9 g/dL 2.7 g/dL Globulin 4.3 4.4 Albumin/Globulin Ratio 0.674 0.613 Thyroid Stimulating Hormone (TSH) 3.598 mIU/mL Bedside Glucose 121 Activated Partial Thromboplast Time 31.9 SEC 32.9 SEC Neutrophils (%) (Auto) 74.2 % Lymphocytes (%) (Auto) 19.9 % Monocytes (%) (Auto) 5.2 % Neutrophils # (Auto) 7.8 10^3/uL Lymphocytes # (Auto) 2.10 10^3/uL1 Monocytes # (Auto) 0.6 10^3/uL Absolute Immature Granulocyte (auto 0.03 10^3 u/L Absolute Eosinophils (auto) 0.0 10^3/uL Immature Granulocytes % 0.30 % Eosinophils % 0.4 % Basophils % 0.3 % Basophils # 0.0 10^3/uL Current Medications Medications (Trade) Dose Ordered Sig/Deloris Route PRN Reason Start Time Stop Time Status Last Admin Dose Admin Heparin Sodium (Porcine) (Heparin) 5,000 unit OT ONCE IV 06/06/21 19:30 06/06/21 19:38 DC Heparin Sodium/ Dextrose 500 ml @ 0 mls/hr TITRATE IV 06/06/21 19:30 07/06/21 19:29 06/05/21 21:40 Amiodarone HCL/ Dextrose 200 ml @ 34 mls/hr OT IV 06/07/21 02:00 07/07/21 01:59 Amiodarone HCL/ Dextrose 200 ml @ 17 mls/hr OT IV 06/06/21 20:00 07/06/21 19:59 Amiodarone HCl 150 mg/Dextrose 103 ml @ 600 mls/hr OT ONCE IV 06/06/21 19:50 06/06/21 20:00 DC 06/06/21 20:38 Amiodarone HCl (Nexterone) 150 mg STK-MED ONCE .ROUTE 06/06/21 19:39 06/06/21 19:40 DC Acetaminophen (Tylenol) 325 mg Q4H PRN PO PAIN 1 - 3 06/06/21 20:00 07/06/21 19:59 06/07/21 03:53 Pantoprazole Sodium (Protonix) 40 mg DAILY PO 06/07/21 09:00 07/07/21 08:59 06/07/21 09:00 Insulin Human Lispro (Humalog) 0-140 0 Units 141-200... ACHS SQ 06/06/21 21:00 07/06/21 20:59 06/07/21 07:30 Dextrose 1,000 ml @ 100 mls/hr Q10H PRN IV hypoglycemia 06/06/21 20:00 07/06/21 19:59 Dextrose (Dextrose 50%-Water Syringe) 25 ml PRN PRN IV hypoglycemia 06/06/21 20:00 07/06/21 19:59 Aspirin (Aspirin) 325 mg DAILY PO 06/07/21 09:00 07/07/21 08:59 06/07/21 09:00 Amiodarone HCl (Nexterone) 150 mg STK-MED ONCE .ROUTE 06/06/21 19:40 06/06/21 19:41 DC Sodium Chloride 250 ml @ ud STK-MED ONCE .ROUTE 06/06/21 19:40 06/06/21 19:41 DC Metoprolol Succinate (Toprol Xl) 50 mg STAT STAT PO 06/06/21 22:16 06/06/21 22:30 DC Metoprolol Succinate (Toprol Xl) 50 mg DAILY PO 06/07/21 09:00 07/07/21 08:59 06/07/21 09:00 Furosemide (Lasix) 40 mg DAILY IV 06/07/21 09:00 07/07/21 08:59 06/07/21 09:00 Furosemide (Lasix) 40 mg STAT STAT IV 06/06/21 22:16 06/06/21 22:30 DC 06/06/21 22:16 Lisinopril (Zestril) 20 mg DAILY PO 06/07/21 09:00 07/07/21 08:59 06/07/21 09:00 Furosemide (Lasix) 40 mg STAT STAT IV 06/06/21 22:40 06/06/21 22:45 DC Morphine Sulfate (Morphine Sulfate) 1 mg Q4H PRN IV PAIN 7 - 10 06/06/21 23:00 07/06/21 22:59 06/07/21 03:43 Assessment/Plan Assessment/Plan Assessment/Plan 70-year-old female with past medical history of coronary artery disease, cardiac stent, hypertension, diabetes, chronic kidney disease stage IV, hyperlipidemia, among others presented to an outside emergency room with shortness of breath and chest pain for the last 3 days. Work-up in the emergency room patient was found to be in A. fib with RVR with heart rate in the 170s. High-sensitivity troponin elevated. Requested transfer the patient to our medical facility for further management and cardiology consultation. In the emergency room patient received metoprolol, Plavix, Lovenox. When the patient arrived to our intensive care unit patient was still in A. fib with RVR with heart rate in the 140s. Safety Supervisor consulted. Patient is being admitted hospital for further management. Plan [place] consulted, worsening kidney function, patient needs heart cath. Appreciate instrument room technician input Rate and rhythm control as per instrument room technician. Anticoagulation Monitor kidney function urine output GI and DVT prophylaxis Patient presenting with potentially life-threatening condition, critical care time spent examining the patient, reviewing labs, images, discussing the case with RESEARCH PHYSICIST, documentation 35 minutes. MATT SERRATO MD Jun 08, 2021 14:29
--- NOTE | 2021-06-08 14:46 | NUR ---
DISCHARGE PLANNING - [facility] UNAVAILABLE TO TAKE PATIENT TO [place] CM INFORMED THAT PATIENT NEEDING TRANSPORTATION BACK TO [place] AND DOES NOT HAVE ANYONE THAT CAN PICK HER UP IN [place]. CM CONTACTED [facility] TO ARRANGE TRANSPORTATION AND PER [facility] - THEY DO NOT GO THAT [place] AND THEIR SERVICES WERE NOT AVAILABLE FOR PATIENT TO TRANSFER BACK TO [place].
--- NOTE | 2021-06-08 14:56 | NUR ---
DCP-TRANSPORT HOME @ 1458 MASOOD DARLING CALLED RN AFTER SPEAKING WITH PT REGARDING NEED FOR FAMILY TO TRANSPORT PT HOME AT TIME OF DC. RN DISCUSSED TO DTR THAT DC HOME [facility] IS TENTATIVE PLAN TOMORROW PER TOOL GRINDER OPERATOR, AND WILL UPDATE IN AM TO CONFIRM IF PT WILL BE DC. @ 1520 AFTER NEPHROLOGY CONSULT WITH DR DALILA MD WOULD LIKE TO FOLLOW PT FOR AT LEAST 2 DAYS TO MONITOR RENAL FUNCTION. RN CALLED PT DTNiki DARLING TO UPDATE RE PT PLAN OF CARE. NO ANSWER, LM FOR DTR TO CALL BACK. Addendum: 06/08/21 at 1607 by MOLLY CURTIS RN, WINNIE FUNK @ 5597 [address] DARLING #[phone] CALLED BACK, RN INFORMED DTR THAT PT MAY NOT DC [facility], THEREFORE, MAY NOT NEED A RIDE HOME, HOWEVER, WILL KEEP INFORMED IF ANY UPDATES ARISE. MORE INFORMATION WILL BE AVAILABLE TOMORROW AM AFTER LABS ARE RESULTED.
--- NOTE | 2021-06-08 14:57 | NUR ---
DISCHARGE PLAN CM VISITED WITH PATIENT AT BEDSIDE REGARDING D/C PLAN. PATIENT STATING SHE DOES NOT HAVE DISCHARGE TRANSPORTATION. SHE LIVES AT HOME WITH HER SPOUSE. SHE IS IND OF ADLS AND DOES NOT USE DME IN THE HOME. HER PCP IS DR EVELYN CAPMUZANO. CM CONTACTED [facility] (THEY DO NOT PROVIDE TRANSPORT TO [place]), AND ESTEFANY MOREIRA OF [facility] IN [place] REQUESTING ASSISTANCE WITH GETTING PATIENT HOME. PER ESTEFANY SHE WILL DO SOME CHECKING AROUND FOR RESOURCES. CM ATTEMPTED TO CALL DAUGHTER AND SPOUSE AND LEFT VM @ BOTH PHONE NUMBERS. MOLLY PROGRAM SCHEDULE CLERK CALL CM TO [place] DAUGHTER CALLED BACK AND STATED SHE COULD PICK HER MOTHER UP AFTER 5 WHEN SHE GETS OFF WORK TOMORROW SHE ESTIMATED IT WOULD BE AROUND 8 PM BEFORE SHE WOULD ARRIVE TO [place]. CM NOTIFIED ESTEFANY MOREIRA @ [facility] OF PLAN. DISCHARGE PLAN IS FOR PATIENT TO D/C BACK HOME TO ROUTINE CARE WITH HER SPOUSE.
--- NOTE | 2021-06-08 15:00 | NUR ---
NEPHROLOGY CONSULT DR CONNER MET WITH PT OVER VIDEO CONFERENCE WITH BEDSIDE RN. DISCUSSED CURRENT MEDICATIONS/POC AND I/Os. PER MD, EXPECT TO MONITOR PT RENAL FUNCTION OVER NEXT TWO DAYS. BOARD FINISHER FRIDA HEBERT.
--- NOTE | 2021-06-08 15:37 | TELE.CONS ---
Consultation Reason for Consult: Reason for Consultation: YARED on CKD III History of Present Illness Current and Past HX: (1) NSTEMI (non-ST elevated myocardial infarction) ICD Code: I21.4 - Non-ST elevation (NSTEMI) myocardial infarction SNOMED: 81333386 (2) Atrial fibrillation, rapid ICD Code: I48.91 - Unspecified atrial fibrillation SNOMED: 085637124 (3) CKD stage 4 due to type 1 diabetes mellitus ICD Code: E10.22 - Type 1 diabetes mellitus with diabetic chronic kidney disease; N18.4 - Chronic kidney disease, stage 4 (severe) SNOMED: 99458208, 04803873825303 (4) Diabetes ICD Code: E11.9 - Type 2 diabetes mellitus without complications SNOMED: 82135380 (5) FH: cancer ICD Code: Z80.9 - Family history of malignant neoplasm, unspecified SNOMED: 082477718 History of Patient Comments CONSULT Kindly asked to see Pt for YARED on CKD With consent, Pt has been seen/examined via HIPAA compliant Audio-Visual Sync Tele-health platform with nursing at the bedside. Care d/w team. HPI 70-year-old female with past medical history of coronary artery disease, cardiac stent, hypertension, diabetes, chronic kidney disease stage III/IV, hyperlipid emia, among others presented to an outside emergency room with shortness of breath and chest pain for the last 3 days. Work-up in the emergency room patient was found to be in A. fib with RVR with heart rate in the 170s with trop leak. Given SOB, Pt was diuresed with excellent UOP and as of this AM was net negative 2.L. She was too started on DINESH therapy. Pt is noted to have a Cr bump 1.92 -> 2.42 -> 3.15. For NSTEMI.she went to heart cath this AM with minimum contrast used per report. Consult received this AM and Pt had already gone for heart cath. Care has been discussed with team at the bedside. EMR and Meds reviewed. Her Lasix and Lisinopril have already been held. Marcelino catheter is in place. Pt is comfortable and denies any complaints. PMHx as documented above in the HPI and EMR PSHx Non recent PFHx Reviewed, NC. No familial CKD ALL NKDA SOCIAL No current abuse of tobacco, drugs or etoh MEDS Reviewed and documented in the EMR ROS Per HPI. 11 systems reviewed and o/w unremarkable EXAM Vital reviewed and documented in the EMR Alert, comfortable, NAD PERRLA. Head ATNC Neck without obvious JVD Resp unlabored and chest with equal chest rise Cardiac regular on strip/monitor Abd without gross distention Ext without overt edema Skin is intact without rash Neuro Alert and non-focal Mood is appropriate and pleasant LABS reviewed and documented in the EMR A/P CKD III/IV with unclear baseline Cr - Followed by Nephrology, Dr. Cade in [place], [place] - YARED with Cr 1.92 -> 2.43 -> 3.13 s/p Afib RVR; hypotension; DINESH; diuresis and heart cath (06/08/21) - Agree with holding lasix and lisinopril - There is no role at this time for renal PPx - No urgent need for [employer] - Will continue to monitor renal function and trend Cr - Please avoid nephrotoxins and maintain MAP >60 Electrolytes - Balanced Acid/Base - Balanced BMD - Will follow PTH, Vit D and PO4 as appropriate Anemia - Hgb in goal Thank You! [facility] [phone] (c) [phone] (o) Vitals & Lab Laboratory Tests Test 06/06/21 00:00 06/06/21 19:32 06/06/21 21:56 06/07/21 01:26 Urine Collection Type CCMS Urine Color YELLOW Urine Appearance CLEAR Urine Bilirubin NEGATIVE Urine Ketones NEGATIVE Urine Specific [place] 1.025 Urine pH 6.0 Urine Protein 3+ Urine Urobilinogen 0.2 E.U./dL Urine Nitrate NEGATIVE Urine Leukocyte Esterase NEGATIVE Urine Glucose (Auto)(UA) NEGATIVE Urine Blood TRACE-INTACT Urine RBC 0-2 RBC/HPF Urine WBC NONE SEEN WBC/HPF Urine Squamous Epithelial Cells FEW Urine Bacteria NONE SEEN White Blood Count 9.6 10^3/uL Red Blood Count 4.16 10^6/uL Hemoglobin 12.1 g/dL Hematocrit 38.3 % Mean Corpuscular Volume 92.1 fL Mean Corpuscular Hemoglobin 29.1 pg Mean Corpuscular Hemoglobin Concent 31.6 g/dL Red Cell Distribution Width 14.6 % Platelet Count 168 10^3/uL Mean Platelet Volume 11.3 fL Sodium Level 143 mmol/L Potassium Level 4.1 mmol/L Chloride Level 107.0 mmol/L Carbon Dioxide Level 25.3 mmol/L Anion Gap 14.8 Blood Urea Nitrogen 28 mg/dL Creatinine 1.92 mg/dL Estimated GFR () 31.3 Est GFR (CKD-EPI)(Non-Afr English) 25.9 BUN/Creatinine Ratio 14.0 Glucose Level 121 mg/dL Calcium Level 8.7 mg/dL Magnesium Level 1.7 mg/dL Total Bilirubin 0.6 mg/dL Aspartate Amino Transf (AST/SGOT) 14 U/L Alanine Aminotransferase (ALT/SGPT) 24 U/L Alkaline Phosphatase 118 U/L Troponin I High Sensitivity 225 ng/L 220 ng/L Pro-B-Type Natriuretic Peptide 5159 pg/mL Total Protein 7.2 g/dL Albumin 2.9 g/dL Globulin 4.3 Albumin/Globulin Ratio 0.674 Thyroid Stimulating Hormone (TSH) 3.598 mIU/mL Bedside Glucose 121 Activated Partial Thromboplast Time 31.9 SEC Test 06/07/21 07:27 06/07/21 11:38 06/07/21 11:53 06/07/21 16:07 White Blood Count 10.6 10^3/uL Red Blood Count 4.06 10^6/uL Hemoglobin 11.9 g/dL Hematocrit 37.8 % Mean Corpuscular Volume 93.1 fL Mean Corpuscular Hemoglobin 29.3 pg Mean Corpuscular Hemoglobin Concent 31.5 g/dL Red Cell Distribution Width 14.6 % Platelet Count 180 10^3/uL Mean Platelet Volume 11.3 fL Neutrophils (%) (Auto) 74.2 % Lymphocytes (%) (Auto) 19.9 % Monocytes (%) (Auto) 5.2 % Neutrophils # (Auto) 7.8 10^3/uL Lymphocytes # (Auto) 2.10 10^3/uL1 Monocytes # (Auto) 0.6 10^3/uL Absolute Immature Granulocyte (auto 0.03 10^3 u/L Absolute Eosinophils (auto) 0.0 10^3/uL Immature Granulocytes % 0.30 % Eosinophils % 0.4 % Basophils % 0.3 % Basophils # 0.0 10^3/uL Activated Partial Thromboplast Time 32.9 SEC 33.4 SEC 28.7 SEC Sodium Level 140 mmol/L Potassium Level 4.1 mmol/L Chloride Level 104.0 mmol/L Carbon Dioxide Level 28.1 mmol/L Anion Gap 12.0 Blood Urea Nitrogen 29 mg/dL Creatinine 2.43 mg/dL Estimated GFR () 23.9 Est GFR (CKD-EPI)(Non-Afr English) 19.7 BUN/Creatinine Ratio 11.0 Glucose Level 183 mg/dL Calcium Level 8.9 mg/dL Total Bilirubin 0.9 mg/dL Aspartate Amino Transf (AST/SGOT) 41 U/L Alanine Aminotransferase (ALT/SGPT) 31 U/L Alkaline Phosphatase 126 U/L Troponin I High Sensitivity 176 ng/L Total Protein 7.1 g/dL Albumin 2.7 g/dL Globulin 4.4 Albumin/Globulin Ratio 0.613 Bedside Glucose 172 Test 06/07/21 17:12 06/07/21 21:10 06/07/21 21:43 06/08/21 02:11 Bedside Glucose 118 118 Activated Partial Thromboplast Time 33.1 SEC White Blood Count 10.8 10^3/uL Red Blood Count 4.02 10^6/uL Hemoglobin 11.7 g/dL Hematocrit 37.8 % Mean Corpuscular Volume 94.0 fL Mean Corpuscular Hemoglobin 29.1 pg Mean Corpuscular Hemoglobin Concent 31.0 g/dL Red Cell Distribution Width 14.7 % Platelet Count 190 10^3/uL Mean Platelet Volume 11.5 fL Neutrophils (%) (Auto) 67.3 % Lymphocytes (%) (Auto) 26.9 % Monocytes (%) (Auto) 4.3 % Neutrophils # (Auto) 7.3 10^3/uL Lymphocytes # (Auto) 2.90 10^3/uL1 Monocytes # (Auto) 0.5 10^3/uL Absolute Immature Granulocyte (auto 0.03 10^3 u/L Absolute Eosinophils (auto) 0.1 10^3/uL Immature Granulocytes % 0.30 % Eosinophils % 0.8 % Basophils % 0.4 % Basophils # 0.0 10^3/uL Sodium Level 136 mmol/L Potassium Level 4.1 mmol/L Chloride Level 101.0 mmol/L Carbon Dioxide Level 23.5 mmol/L Anion Gap 15.6 Blood Urea Nitrogen 43 mg/dL Creatinine 3.15 mg/dL Estimated GFR () 17.7 Est GFR (CKD-EPI)(Non-Afr English) 14.6 BUN/Creatinine Ratio 13.0 Glucose Level 126 mg/dL Calcium Level 8.5 mg/dL Total Bilirubin 0.3 mg/dL Aspartate Amino Transf (AST/SGOT) 18 U/L Alanine Aminotransferase (ALT/SGPT) 24 U/L Alkaline Phosphatase 115 U/L Total Protein 7.1 g/dL Albumin 2.6 g/dL Globulin 4.5 Albumin/Globulin Ratio 0.577 Test 06/08/21 02:17 06/08/21 07:33 06/08/21 07:34 06/08/21 13:20 Activated Partial Thromboplast Time 34.3 SEC 35.0 SEC Bedside Glucose 130 105 Current Medications Medications (Trade) Dose Ordered Sig/Deloris Route PRN Reason Start Time Stop Time Status Last Admin Dose Admin Heparin Sodium (Porcine) (Heparin) 5,000 unit OT ONCE IV 06/06/21 19:30 06/06/21 19:38 DC Heparin Sodium/ Dextrose 500 ml @ 0 mls/hr TITRATE IV 06/06/21 19:30 06/08/21 13:29 DC 06/05/21 21:40 Amiodarone HCL/ Dextrose 200 ml @ 34 mls/hr OT IV 06/07/21 02:00 06/07/21 22:05 DC Amiodarone HCL/ Dextrose 200 ml @ 17 mls/hr OT IV 06/06/21 20:00 06/07/21 22:05 DC Amiodarone HCl 150 mg/Dextrose 103 ml @ 600 mls/hr OT ONCE IV 06/06/21 19:50 06/06/21 20:00 DC 06/06/21 20:38 Amiodarone HCl (Nexterone) 150 mg STK-MED ONCE .ROUTE 06/06/21 19:39 06/06/21 19:40 DC Acetaminophen (Tylenol) 325 mg Q4H PRN PO PAIN 1 - 3 06/06/21 20:00 07/06/21 19:59 06/08/21 09:07 Pantoprazole Sodium (Protonix) 40 mg DAILY PO 06/07/21 09:00 07/07/21 08:59 06/08/21 09:08 Insulin Human Lispro (Humalog) 0-140 0 Units 141-200... ACHS SQ 06/06/21 21:00 07/06/21 20:59 06/07/21 13:31 Dextrose 1,000 ml @ 100 mls/hr Q10H PRN IV hypoglycemia 06/06/21 20:00 07/06/21 19:59 Dextrose (Dextrose 50%-Water Syringe) 25 ml PRN PRN IV hypoglycemia 06/06/21 20:00 07/06/21 19:59 Aspirin (Aspirin) 325 mg DAILY PO 06/07/21 09:00 07/07/21 08:59 06/08/21 09:06 Amiodarone HCl (Nexterone) 150 mg STK-MED ONCE .ROUTE 06/06/21 19:40 06/06/21 19:41 DC Sodium Chloride 250 ml @ ud STK-MED ONCE .ROUTE 06/06/21 19:40 06/06/21 19:41 DC Metoprolol Succinate (Toprol Xl) 50 mg STAT STAT PO 06/06/21 22:16 06/06/21 22:30 DC Metoprolol Succinate (Toprol Xl) 50 mg DAILY PO 06/07/21 09:00 06/07/21 15:56 DC 06/07/21 09:00 Furosemide (Lasix) 40 mg DAILY IV 06/07/21 09:00 06/08/21 11:44 DC 06/08/21 09:08 Furosemide (Lasix) 40 mg STAT STAT IV 06/06/21 22:16 06/06/21 22:30 DC 06/06/21 22:16 Lisinopril (Zestril) 20 mg DAILY PO 06/07/21 09:00 06/08/21 11:44 DC 06/08/21 09:08 Furosemide (Lasix) 40 mg STAT STAT IV 06/06/21 22:40 06/06/21 22:45 DC Morphine Sulfate (Morphine Sulfate) 1 mg Q4H PRN IV PAIN 7 - 10 06/06/21 23:00 07/06/21 22:59 06/08/21 11:22 Sotalol HCl (Betapace) 80 mg STK-MED ONCE .ROUTE 06/07/21 13:05 06/07/21 13:05 DC Sotalol HCl (Betapace) 80 mg STAT STAT PO 06/07/21 13:28 06/07/21 13:37 DC 06/07/21 13:28 Sotalol HCl (Betapace) 80 mg BID PO 06/07/21 21:00 07/07/21 20:59 06/08/21 09:07 Fentanyl Citrate (Sublimaze) 25 mcg OT ONCE IV 06/07/21 13:30 06/07/21 13:37 DC 06/07/21 13:30 Amiodarone HCl 900 mg/Dextrose 500 ml @ 0 mls/hr OT IV 06/06/21 20:00 06/07/21 22:05 DC Heparin Sodium/ Sodium Chloride 1,500 ml @ ud STK-MED ONCE IV 06/08/21 08:43 06/08/21 08:44 DC Lidocaine HCl (Xylocaine) 20 mg STK-MED ONCE .ROUTE 06/08/21 08:43 06/08/21 08:44 DC Fentanyl Citrate (Sublimaze) 50 mcg STK-MED ONCE .ROUTE 06/08/21 08:44 06/08/21 08:44 DC Morphine Sulfate (Morphine Sulfate) 2 mg STK-MED ONCE .ROUTE 06/08/21 11:21 06/08/21 11:21 DC Sodium Chloride 1,000 ml @ ud STK-MED ONCE .ROUTE 06/08/21 11:53 06/08/21 11:53 DC Review of Systems Respiratory: Shortness of breath Cardiovascular: Chest Pain, Palpitations Musculoskeletal: other (Hip pain), neck pain Allergies: Coded Allergies: Sulfa (Sulfonamide Antibiotics) (Verified Allergy, Unknown, 06/06/21) VITALS REVIEW VITALS Vital Sign - Last 24 Hours 06/06/21 06/06/21 06/06/21 06/06/21 18:42 18:45 18:57 19:15 Temp 98.8 98.8 Pulse 141 141 143 Resp 45 38 37 B/P (MAP) 132/86 (101) 06/06/21 06/06/21 06/06/21 06/06/21 19:15 19:30 19:32 19:45 Pulse 138 157 153 141 Resp 39 49 46 34 B/P (MAP) 169/120 (136) 143/102 (116) 06/06/21 06/06/21 06/06/21 06/06/21 20:00 20:00 20:01 20:15 Pulse 136 150 160 Resp 33 20 20 B/P (MAP) 162/119 (133) O2 Delivery Room Air 2/806/06/21 06/06/21 06/06/21 20:16 20:30 20:45 21:00 Pulse 151 143 139 139 Resp 28 31 30 35 B/P (MAP) 140/90 (107) 171/111 (131) 161/87 (111) 184/85 (118) 06/06/21 06/06/21 06/06/21 06/06/21 21:45 22:16 22:30 22:31 Pulse 138 148 149 Resp 16 11 27 B/P (MAP) 150/75 96/60 (72) Pulse Ox 96 O2 Delivery Nasal Cannula O2 Flow Rate 2.00 06/06/21 06/06/21 06/06/21 06/06/21 22:43 22:45 22:47 22:49 Pulse 151 148 147 144 Resp 71 98 82 B/P (MAP) 150/75 (100) 06/06/21 06/06/21 06/06/21 06/06/21 23:00 23:01 23:15 23:17 Pulse 140 137 127 152 Resp 92 35 B/P (MAP) 165/81 (109) 149/57 (87) Pulse Ox 97 96 06/06/21 06/06/21 06/06/21 06/06/21 23:30 23:31 23:45 23:46 Pulse 159 139 161 160 Resp 34 34 B/P (MAP) 140/64 (89) 143/70 (94) Pulse Ox 95 95 96 96 06/07/21 06/07/21 06/07/21 06/07/21 00:00 00:01 00:01 00:15 Pulse 151 158 151 Resp 34 28 B/P (MAP) 124/68 (86) Pulse Ox 97 97 97 O2 Delivery Room Air 06/07/21 06/07/21 06/07/21 06/07/21 00:16 00:30 00:31 00:45 Pulse 151 151 127 164 B/P (MAP) 130/111 (117) 132/83 (99) Pulse Ox 97 98 96 97 06/07/21 06/07/21 06/07/21 06/07/21 00:47 01:00 01:01 01:15 Pulse 158 163 154 148 Resp 69 36 29 B/P (MAP) 162/88 (112) 139/75 (96) Pulse Ox 97 99 97 97 06/07/21 06/07/21 06/07/21 06/07/21 01:16 01:30 01:31 01:45 Pulse 154 152 150 161 Resp 34 46 B/P (MAP) 157/86 (109) 148/106 (120) Pulse Ox 97 95 96 95 06/07/21 06/07/21 06/07/21 06/07/21 01:46 02:00 02:01 02:15 Pulse 147 161 150 154 Resp 31 31 30 B/P (MAP) 135/70 (91) 121/76 (91) Pulse Ox 95 98 95 95 06/07/21 06/07/21 06/07/21 06/07/21 02:16 02:30 02:31 02:45 Pulse 158 151 146 152 Resp 30 28 28 30 B/P (MAP) 142/74 (96) 133/87 (102) Pulse Ox 96 97 97 94 06/07/21 06/07/21 06/07/21 06/07/21 02:46 03:00 03:02 03:46 Pulse 153 148 142 150 Resp 31 35 32 40 B/P (MAP) 150/87 (108) 110/82 (91) 138/104 (115) Pulse Ox 94 90 91 93 06/07/21 06/07/21 06/07/21 06/07/21 04:00 04:01 04:15 07:31 Pulse 164 158 163 143 Resp 28 31 27 B/P (MAP) 98/49 (65) 116/73 (87) 111/81 (91) Pulse Ox 96 96 97 89 06/07/21 06/07/21 06/07/21 06/07/21 07:45 07:46 08:00 08:00 Pulse 137 134 130 Resp 22 22 115 B/P (MAP) 148/58 (88) Pulse Ox 94 95 97 O2 Delivery Room Air 06/07/21 06/07/21 06/07/21 06/07/21 08:01 08:15 08:16 08:30 Pulse 139 132 141 128 Resp 52 123 48 42 B/P (MAP) 126/59 (81) 133/58 (83) Pulse Ox 95 95 96 96 06/07/21 06/07/21 06/07/21 06/07/21 08:32 08:45 08:46 09:00 Pulse 137 133 133 150 Resp 54 24 26 B/P (MAP) 131/82 (98) 138/67 (90) 131/80 Pulse Ox 96 96 97 06/07/21 06/07/21 06/07/21 06/07/21 09:00 09:00 09:00 09:01 Pulse 138 128 Resp 84 24 B/P (MAP) 131/80 131/80 127/56 (79) Pulse Ox 100 97 06/07/21 06/07/21 06/07/21 06/07/21 09:15 09:16 09:30 09:32 Pulse 136 136 138 131 Resp 23 22 17 B/P (MAP) 121/88 (99) 119/59 (79) Pulse Ox 97 98 99 99 06/07/21 06/07/21 06/07/21 06/07/21 09:45 09:47 10:00 10:01 Pulse 140 141 131 134 Resp 69 35 24 23 Pulse Ox 96 79 98 99 06/07/21 06/07/21 06/07/21 06/07/21 10:15 10:16 10:21 10:30 Pulse 126 138 135 140 Resp 61 19 26 B/P (MAP) 131/81 (98) 146/64 (91) Pulse Ox 99 98 06/07/21 06/07/21 06/07/21 06/07/21 10:45 11:00 11:15 11:30 Pulse 130 132 125 122 Resp 23 23 20 B/P (MAP) 161/63 (95) 130/55 (80) 127/63 (84) 137/66 (89) Pulse Ox 99 98 99 98 06/07/21 06/07/21 06/07/21 06/07/21 11:45 12:00 12:00 12:15 Pulse 113 111 113 Resp 15 18 17 B/P (MAP) 112/58 (76) 100/56 (71) Pulse Ox 99 97 99 O2 Delivery Room Air 06/07/21 06/07/21 06/07/21 06/07/21 12:16 12:30 12:31 12:45 Pulse 118 114 110 103 Resp 59 13 16 14 Pulse Ox 94 98 99 98 06/07/21 06/07/21 06/07/21 06/07/21 12:46 13:00 13:01 13:15 Pulse 106 109 106 112 Resp 17 22 18 Pulse Ox 95 98 97 2/9/22 2/9/22 2/9/22 2/9/22 13:30 13:45 14:00 14:09 Pulse 94 102 94 154 Resp 17 24 18 Pulse Ox 100 100 100 98 O2 Flow Rate 2.00 FiO2 28 06/07/21 06/07/21 06/07/21 06/07/21 14:15 14:30 14:45 15:00 Pulse 99 89 90 94 Resp 16 18 19 16 Pulse Ox 100 100 100 100 06/07/21 06/07/21 06/07/21 06/07/21 15:15 15:30 15:45 16:00 Pulse 86 81 79 Resp 17 21 14 Pulse Ox 100 100 100 O2 Delivery Room Air 06/07/21 06/07/21 06/07/21 06/07/21 16:00 16:23 16:30 16:45 Pulse 91 91 88 87 Resp 21 37 19 20 B/P (MAP) 119/88 (98) 129/56 (80) 122/64 (83) Pulse Ox 99 100 100 06/07/21 06/07/21 06/07/21 06/07/21 17:00 17:15 17:30 17:46 Pulse 81 88 88 95 Resp 20 23 26 30 B/P (MAP) 105/64 (78) 115/49 (71) 115/74 (88) 131/72 (91) Pulse Ox 100 100 100 97 06/07/21 06/07/21 06/07/21 06/07/21 18:30 18:45 19:00 19:15 Pulse 101 104 100 98 Resp 27 B/P (MAP) 133/61 (85) 135/78 (97) 119/62 (81) 115/65 (82) Pulse Ox 100 100 99 100 06/07/21 06/07/21 06/07/21 06/07/21 19:30 19:45 20:00 20:00 Pulse 102 94 111 Resp 23 20 22 B/P (MAP) 140/73 (95) 119/50 (73) 103/63 (76) Pulse Ox 100 100 99 O2 Delivery Nasal Cannula 06/07/21 06/07/21 06/07/21 06/07/21 20:15 20:30 20:45 21:00 Pulse 102 109 100 106 Resp 23 24 24 21 B/P (MAP) 125/56 (79) 109/47 (67) 116/67 (83) 94/64 (74) Pulse Ox 100 99 100 100 06/07/21 06/07/21 06/07/21 06/07/21 21:15 21:30 21:33 21:45 Pulse 111 108 111 109 Resp 20 128 B/P (MAP) 111/60 (77) 110/66 (81) 118/78 (91) Pulse Ox 99 100 92 89 O2 Delivery Room Air O2 Flow Rate 2.00 06/07/21 06/07/21 06/08/21 06/08/21 22:00 22:15 01:30 01:45 Temp 98.8 Pulse 108 92 120 104 Resp B/P (MAP) 133/70 (91) 111/61 (78) Pulse Ox 91 100 99 97 06/08/21 06/08/21 06/08/21 06/08/21 02:00 02:15 02:30 02:45 Pulse 111 110 108 115 Resp 28 B/P (MAP) 139/76 (97) Pulse Ox 93 90 94 94 06/08/21 06/08/21 06/08/21 06/08/21 03:00 03:15 03:30 03:45 Pulse 112 108 102 117 Resp 29 B/P (MAP) 131/76 (94) Pulse Ox 96 91 92 94 06/08/21 06/08/21 06/08/21 06/08/21 04:00 04:00 04:15 04:30 Pulse 103 107 101 Resp 40 28 B/P (MAP) 120/72 (88) Pulse Ox 97 88 89 O2 Delivery Nasal Cannula 06/08/21 06/08/21 06/08/21 06/08/21 04:45 05:00 05:15 05:30 Pulse 115 107 110 110 Resp 24 B/P (MAP) 129/74 (92) Pulse Ox 88 96 94 94 06/08/21 06/08/21 06/08/21 06/08/21 05:45 06:00 06:15 06:30 Pulse 107 116 120 117 Resp 35 22 B/P (MAP) 115/75 (88) Pulse Ox 97 95 95 98 O2 Delivery Room Air 2/1006/08/21 06/08/21 06/08/21 06:45 07:00 07:15 07:30 Pulse 113 112 108 114 Resp 25 24 23 16 B/P (MAP) 115/82 (93) Pulse Ox 96 94 97 90 06/08/21 06/08/21 06/08/21 06/08/21 07:45 08:00 08:01 08:15 Temp 99.9 Pulse 108 119 110 117 Resp 20 19 23 B/P (MAP) 109/70 (83) Pulse Ox 95 94 90 93 O2 Delivery Room Air Room Air 06/08/21 06/08/21 06/08/21 06/08/21 08:30 08:34 08:38 08:45 Pulse 129 123 112 114 Resp 19 21 18 20 B/P (MAP) 116/62 (80) Pulse Ox 95 94 95 95 O2 Delivery Room Air FiO2 21 06/08/21 06/08/21 06/08/21 06/08/21 09:00 09:08 09:08 09:15 Pulse 112 105 Resp 19 18 B/P (MAP) 134/59 (84) 134/59 134/59 Pulse Ox 98 98 O2 Delivery Room Air 06/08/21 06/08/21 06/08/21 06/08/21 09:30 09:45 10:00 10:15 Pulse 110 114 104 101 Resp 24 18 20 21 B/P (MAP) 122/71 (88) 98/59 (72) Pulse Ox 98 99 95 96 06/08/21 06/08/21 06/08/21 06/08/21 10:30 10:45 11:00 11:15 Pulse 112 102 105 101 Resp 19 15 14 20 B/P (MAP) 112/53 (72) 116/56 (76) Pulse Ox 100 90 91 92 O2 Delivery Room Air 06/08/21 06/08/21 06/08/21 06/08/21 11:30 11:45 12:46 13:22 Pulse 94 105 98 87 Resp 17 16 16 22 B/P (MAP) 111/55 (73) 101/55 (70) Pulse Ox 96 99 97 95 O2 Delivery Room Air Room Air O2 Flow Rate 0.00 FiO2 21 06/08/21 06/08/21 13:30 13:45 Pulse 94 100 Resp 23 18 B/P (MAP) 102/50 (67) Pulse Ox 95 96 O2 Delivery Room Air Intake and Output 06/08/21 07:00 Intake Total 1354 ml Output Total 1575 ml Balance -221 ml LABS LAB RESULTS Laboratory Tests Test 06/06/21 00:00 06/06/21 19:32 06/06/21 21:56 06/07/21 01:26 Urine Collection Type CCMS Urine Color YELLOW Urine Appearance CLEAR Urine Bilirubin NEGATIVE (NEGATIVE) Urine Ketones NEGATIVE (NEGATIVE) Urine Specific [place] 1.025 (1.005-1.030) Urine pH 6.0 (4.5-8.0) Urine Protein 3+ (NEGATIVE) Urine Urobilinogen 0.2 E.U./dL (0.2) Urine Nitrate NEGATIVE (NEGATIVE) Urine Leukocyte Esterase NEGATIVE (NEGATIVE) Urine Glucose (Auto)(UA) NEGATIVE (NEGATIVE) Urine Blood TRACE-INTACT (NEGATIVE) Urine RBC 0-2 RBC/HPF (NONE SEEN) Urine WBC NONE SEEN WBC/HPF (0-2) Urine Squamous Epithelial Cells FEW (<=FEW) Urine Bacteria NONE SEEN (NONE SEEN) White Blood Count 9.6 10^3/uL (4.5-11.0) Red Blood Count 4.16 10^6/uL (4.00-5.20) Hemoglobin 12.1 g/dL (12.0-15.0) Hematocrit 38.3 % (36.0-46.0) Mean Corpuscular Volume 92.1 fL (78-100) Mean Corpuscular Hemoglobin 29.1 pg (26-34) Mean Corpuscular Hemoglobin Concent 31.6 g/dL (33-36.5) Red Cell Distribution Width 14.6 % (11.5-14.5) Platelet Count 168 10^3/uL (150-400) Mean Platelet Volume 11.3 fL (7.8-11.0) Sodium Level 143 mmol/L (132-145) Potassium Level 4.1 mmol/L (3.6-5.2) Chloride Level 107.0 mmol/L (96-109) Carbon Dioxide Level 25.3 mmol/L (20.0-32) Anion Gap 14.8 Blood Urea Nitrogen 28 mg/dL (7-18) Creatinine 1.92 mg/dL (0.59-1.40) Estimated GFR () 31.3 (>/=60) Est GFR (CKD-EPI)(Non-Afr English) 25.9 (>/=60) BUN/Creatinine Ratio 14.0 Glucose Level 121 mg/dL (70-110) Calcium Level 8.7 mg/dL (8.4-10.5) Magnesium Level 1.7 mg/dL (1.8-2.4) Total Bilirubin 0.6 mg/dL (0.2-1.0) Aspartate Amino Transf (AST/SGOT) 14 U/L (0-35) Alanine Aminotransferase (ALT/SGPT) 24 U/L (12-78) Alkaline Phosphatase 118 U/L (50-136) Troponin I High Sensitivity 225 ng/L (0-50) 220 ng/L (0-50) Pro-B-Type Natriuretic Peptide 5159 pg/mL (0-125) Total Protein 7.2 g/dL (6.4-8.2) Albumin 2.9 g/dL (3.4-5.0) Globulin 4.3 Albumin/Globulin Ratio 0.674 Thyroid Stimulating Hormone (TSH) 3.598 mIU/mL (0.358-3.740) Bedside Glucose 121 (70-110) Activated Partial Thromboplast Time 31.9 SEC (24.67-30.72) Test 06/07/21 07:27 06/07/21 11:38 06/07/21 11:53 06/07/21 16:07 White Blood Count 10.6 10^3/uL (4.5-11.0) Red Blood Count 4.06 10^6/uL (4.00-5.20) Hemoglobin 11.9 g/dL (12.0-15.0) Hematocrit 37.8 % (36.0-46.0) Mean Corpuscular Volume 93.1 fL (78-100) Mean Corpuscular Hemoglobin 29.3 pg (26-34) Mean Corpuscular Hemoglobin Concent 31.5 g/dL (33-36.5) Red Cell Distribution Width 14.6 % (11.5-14.5) Platelet Count 180 10^3/uL (150-400) Mean Platelet Volume 11.3 fL (7.8-11.0) Neutrophils (%) (Auto) 74.2 % (41.0-85.0) Lymphocytes (%) (Auto) 19.9 % (24.0-44.0) Monocytes (%) (Auto) 5.2 % (5.0-12.0) Neutrophils # (Auto) 7.8 10^3/uL (1.8-7.7) Lymphocytes # (Auto) 2.10 10^3/uL1 (1.0-4.8) Monocytes # (Auto) 0.6 10^3/uL (0.3-0.8) Absolute Immature Granulocyte (auto 0.03 10^3 u/L (0-2) Absolute Eosinophils (auto) 0.0 10^3/uL (0.0-0.2) Immature Granulocytes % 0.30 % (0.00-0.50) Eosinophils % 0.4 % (0.0-5.0) Basophils % 0.3 % (0.0-0.2) Basophils # 0.0 10^3/uL (0.0-0.1) Activated Partial Thromboplast Time 32.9 SEC (24.67-30.72) 33.4 SEC (24.67-30.72) 28.7 SEC (24.67-30.72) Sodium Level 140 mmol/L (132-145) Potassium Level 4.1 mmol/L (3.6-5.2) Chloride Level 104.0 mmol/L (96-109) Carbon Dioxide Level 28.1 mmol/L (20.0-32) Anion Gap 12.0 Blood Urea Nitrogen 29 mg/dL (7-18) Creatinine 2.43 mg/dL (0.59-1.40) Estimated GFR () 23.9 (>/=60) Est GFR (CKD-EPI)(Non-Afr English) 19.7 (>/=60) BUN/Creatinine Ratio 11.0 Glucose Level 183 mg/dL (70-110) Calcium Level 8.9 mg/dL (8.4-10.5) Total Bilirubin 0.9 mg/dL (0.2-1.0) Aspartate Amino Transf (AST/SGOT) 41 U/L (0-35) Alanine Aminotransferase (ALT/SGPT) 31 U/L (12-78) Alkaline Phosphatase 126 U/L (50-136) Troponin I High Sensitivity 176 ng/L (0-50) Total Protein 7.1 g/dL (6.4-8.2) Albumin 2.7 g/dL (3.4-5.0) Globulin 4.4 Albumin/Globulin Ratio 0.613 Bedside Glucose 172 (70-110) Test 06/07/21 17:12 06/07/21 21:10 06/07/21 21:43 06/08/21 02:11 Bedside Glucose 118 (70 - 110) 118 (70-110) Activated Partial Thromboplast Time 33.1 SEC (24.67-30.72) White Blood Count 10.8 10^3/uL (4.5-11.0) Red Blood Count 4.02 10^6/uL (4.00-5.20) Hemoglobin 11.7 g/dL (12.0-15.0) Hematocrit 37.8 % (36.0-46.0) Mean Corpuscular Volume 94.0 fL (78-100) Mean Corpuscular Hemoglobin 29.1 pg (26-34) Mean Corpuscular Hemoglobin Concent 31.0 g/dL (33-36.5) Red Cell Distribution Width 14.7 % (11.5-14.5) Platelet Count 190 10^3/uL (150-400) Mean Platelet Volume 11.5 fL (7.8-11.0) Neutrophils (%) (Auto) 67.3 % (41.0-85.0) Lymphocytes (%) (Auto) 26.9 % (24.0-44.0) Monocytes (%) (Auto) 4.3 % (5.0-12.0) Neutrophils # (Auto) 7.3 10^3/uL (1.8-7.7) Lymphocytes # (Auto) 2.90 10^3/uL1 (1.0-4.8) Monocytes # (Auto) 0.5 10^3/uL (0.3-0.8) Absolute Immature Granulocyte (auto 0.03 10^3 u/L (0-2) Absolute Eosinophils (auto) 0.1 10^3/uL (0.0-0.2) Immature Granulocytes % 0.30 % (0.00-0.50) Eosinophils % 0.8 % (0.0-5.0) Basophils % 0.4 % (0.0-0.2) Basophils # 0.0 10^3/uL (0.0-0.1) Sodium Level 136 mmol/L (132-145) Potassium Level 4.1 mmol/L (3.6-5.2) Chloride Level 101.0 mmol/L (96-109) Carbon Dioxide Level 23.5 mmol/L (20.0-32) Anion Gap 15.6 Blood Urea Nitrogen 43 mg/dL (7-18) Creatinine 3.15 mg/dL (0.59-1.40) Estimated GFR () 17.7 (>/=60) Est GFR (CKD-EPI)(Non-Afr English) 14.6 (>/=60) BUN/Creatinine Ratio 13.0 Glucose Level 126 mg/dL (70-110) Calcium Level 8.5 mg/dL (8.4-10.5) Total Bilirubin 0.3 mg/dL (0.2-1.0) Aspartate Amino Transf (AST/SGOT) 18 U/L (0-35) Alanine Aminotransferase (ALT/SGPT) 24 U/L (12-78) Alkaline Phosphatase 115 U/L (50-136) Total Protein 7.1 g/dL (6.4-8.2) Albumin 2.6 g/dL (3.4-5.0) Globulin 4.5 Albumin/Globulin Ratio 0.577 Test 06/08/21 02:17 06/08/21 07:33 06/08/21 07:34 06/08/21 13:20 Activated Partial Thromboplast Time 34.3 SEC (24.67-30.72) 35.0 SEC (24.67-30.72) Bedside Glucose 130 (70-110) 105 (70-110) VTE VTE Risk Total Score: >5 VTE Risk Score VTE Risk: Score 0-1 = Low Risk (Aggressive mobilization; early ambulation; no VTE prophylaxis required) Score 2: Moderate Risk (Intermittent/Pneumatic Compression Device OR Lovenox/Heparin/Coumadin) Score 3-4: High Risk (Intermittent/Pneumatic Compression Device AND Lovenox/Heparin/Coumadin) Score > or =5: Highest Risk (Intermittent/Pneumatic Compression Device AND Lovenox/Heparin/Coumadin) VTE VTE Present on Admission: Yes Currently receiving anticoagul: Yes VTE Risk Total Score: >5 Assessment/Plan Assessment/Plan Patient History: Alzheimer's disease G8 SISTER Cerebrovascular disorder G8 MOTHER G8 FATHER Chronic obstructive pulmonary disease G8 BROTHER Congestive heart failure G8 MOTHER G8 FATHER Diabetes mellitus G8 MOTHER G8 FATHER FH: [place] (myocardial infarction) G8 MOTHER G8 FATHER G8 BROTHER FH: cancer G8 BROTHER G8 SISTER G8 SISTER FH: cancer G8 BROTHER G8 SISTER G8 SISTER Unknown LUISA CONNER MD Jun 08, 2021 15:36
--- NOTE | 2021-06-08 16:28 | NUR ---
O2 CHECK - PAT ON ROOM AIR - SPO2 97% Addendum: 06/08/21 at 1628 by Maryse Alonso RRT, Contract RT Amended: Links added.
[2021-06-08] MEDS ORDERED: NS 250ML 250 ML ONE (16:29)
--- NOTE | 2021-06-08 19:17 | NUR ---
REPORT TO M/S RN CALLED REPORT TO [facility]. R GROIN SITE DRESSING CDI. ALL IVs NS LOCKED. PT TO BE TRANSFERRED VIA BED TO [facility] JED ROOM [address] BY NIGHT [facility].
--- NOTE | 2021-06-08 19:47 | NUR ---
Pt transfer via bed to M/S. care transferred.
[2021-06-08] MEDS ORDERED: BETAPACE ONE (20:44)
[2021-06-08] MEDS ORDERED: ELIQUIS PO ONE (20:44)
[2021-06-08] MEDS: ELIQUIS PO SCH (21:23)
--- NOTE | 2021-06-09 | CCRH ---
DATE OF SERVICE: 06/08/2021 DICTATOR NAME: EMELYN GALICIA CARDIAC CATHETERIZATION REPORT INDICATIONS: New-onset atrial fibrillation/decompensated heart failure. This is a 70-year-old female who presented to the Emergency Room with atrial fibrillation with rapid ventricular response as well as newly diagnosed decompensated heart failure. She was successfully treated and then set up for left heart catheterization after informed consent were obtained, PROCEDURES PERFORMED: 1. Selective coronary angiography. 2. Left ventriculography. 3. Hemostasis established using a 6-Austrian Angio-Seal. DESCRIPTION OF PROCEDURE: Access was obtained using a 4-Austrian micropuncture kit to cannulate the right common femoral artery. The 4-Austrian sheath was then upsized to a 6-Austrian sheath. Diagnostic angiography was carried out with a Abdiaziz left catheter to engage the left main. There is an ostial 20-30% left main lesion. Good efflux of contrast is visualized in the left main. It bifurcates into left anterior descending artery and the left circumflex artery. The left anterior descending artery has a proximal to mid segment 50% lesion. It runs in the intraventricular groove reaching the apex to form a type 2 LAD. The remaining segments of the LAD is noted to have mild luminal irregularities. The LAD gives rise to a diagonal branch that is noted to have mild luminal irregularities. The left circumflex artery is noted to be nondominant and with mild luminal irregularities. It gives rise to 2 obtuse marginal branches that are noted to have mild luminal irregularities. The Abdiaziz left catheter was then exchanged for a Abdiaziz right catheter, which was used to engage the RCA. RCA angiography showed a dominant RCA with mild luminal irregularities. Widely patent stent is visualized in the proximal to mid segment of the RCA. The RCA bifurcates distally to a right posterior descending artery and a right posterolateral artery. Both vessels are noted to have mild luminal irregularities. The Abdiaziz right catheter was then exchanged for a pigtail catheter, which was used to cross the aortic valve into the left ventricle. Left ventriculography was performed. LVEF was noted to be 55%. LVEDP was noted to be 12. Upon pullback of the pigtail catheter, there was no gradient across the aortic valve. The pigtail catheter was then taken out and hemostasis was established using a 6-Austrian Angio-Seal. The patient left the slabber light in stable condition. There were no complications. IMPRESSION: 1. A 50% stenosis of the proximal to mid segment of the left anterior descending artery. 2. A 20-30% ostial left main artery lesion. 3. Nonobstructive coronary artery disease. 4. Selective coronary angiography. 5. Left ventriculography. 6. Left ventricular ejection fraction of 55%. 7. Left ventricular end-diastolic pressure of 12. 8. Hemostasis established using a 6-Austrian Angio-Seal. RECOMMENDATIONS: At this time, no coronary intervention is needed. Aggressive lifestyle modification changes have been strongly advised. The patient will certainly benefit from statin therapy. 65 mL of Visipaque contrast was utilized for the entire procedure. Visipaque contrast is known to have very minimal nephrotoxic effect. The patient can be discharged home from a cardiac standpoint to follow up with her primary utility pipe layer within 1 week of discharge. Markell FREDERICK D.O. DR: SHANIQUA TID: [id number] RECEIPT: [id number] MTDMarina
[2021-06-09] MEDS ORDERED: MORPHINE SULFATE ONE (00:10)
[2021-06-09] MEDS: MORPHINE SULFATE IV PRN (00:20)
[2021-06-09 04:06] VITALS: BP 112/55
[2021-06-09 07:20] VITALS: BP 111/65
[2021-06-09] MEDS: HUMALOG SQ SCH ×4 (07:45→21:25)
[2021-06-09 08:24] LABS: MEAN CORP HGB 29.1 pg (26-34); RED CELL DISTRIBUTION WIDTH 14.5 % (11.5-14.5)
[2021-06-09] MEDS: ASPIRIN PO SCH (08:33)
[2021-06-09] MEDS: PROTONIX PO SCH (08:33)
[2021-06-09] MEDS: BETAPACE PO SCH ×2 (08:33→21:25)
[2021-06-09] MEDS: ELIQUIS PO SCH ×2 (08:33→21:25)
[2021-06-09 11:21] VITALS: BP 93/51
--- NOTE | 2021-06-09 12:35 | PCM.EKG ---
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
--- NOTE | 2021-06-09 13:00 | PRM.PN ---
PROGRESS NOTE S/O/A/P RENAL With consent, Pt has been seen/examined via HIPAA compliant Audio-Visual Sync Tele-health platform with nursing at the bedside. Care d/w team. No significant overnight events or significant changes. Interval Hx reviewed. 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 Cade in [place], [place] - YARED with Cr up since . Now starting to SHOW PLATEAU - s/p Afib RVR; hypotension; DINESH; diuresis and heart cath (06/08/21) - Please continue to HOLD lasix and lisinopril - There is no role at this time for renal PPx - No urgent need for NETWORK ENGINEERING ADVISOR - Will continue to monitor renal function and trend Cr - Please avoid nephrotoxins and maintain MAP >60 Electrolytes - Balanced Acid/Base - Balanced BMD - Will follow PTH, Vit D and PO4 as appropriate Anemia - Hgb in goal Thank You! Luias Conner [facility] [phone] (c) [phone] (o) LUISA CONNER MD Jun 09, 2021 13:00
[2021-06-09 15:06] VITALS: BP 102/57
--- NOTE | 2021-06-09 16:14 | PRM.PN ---
Subjective Subjective Date: Jun 09, 2021 Time: 09:00 Subjective She is doing okay, less shortness of breath, creatinine remains elevated at 3.15. Appreciate nephrology input. Patient had a heart cath yesterday with the following findings:IMPRESSION: 1. A 50% stenosis of the proximal to mid segment of the left anterior descending artery. 2. A 20-30% ostial left main artery lesion. 3. Nonobstructive coronary artery disease. 4. Selective coronary angiography. 5. Left ventriculography. 6. Left ventricular ejection fraction of 55%. 7. Left ventricular end-diastolic pressure of 12. 8. Hemostasis established using a 6-Libyan Angio-Seal. RECOMMENDATIONS: At this time, no coronary intervention is needed. Aggressive lifestyle modification changes have been strongly advised. The patient will certainly benefit from statin therapy. 65 mL of Visipaque contrast was utilized for the entire procedure. Visipaque contrast is known to have very minimal nephrotoxic effect. The patient can be discharged home from a cardiac standpoint to follow up with her primary physician credentialing specialist within 1 week of discharge. Patient History: Alzheimer's disease G8 SISTER Cerebrovascular disorder G8 MOTHER G8 FATHER Chronic obstructive pulmonary disease G8 BROTHER Congestive heart failure G8 MOTHER G8 FATHER Diabetes mellitus G8 MOTHER G8 FATHER FH: [place] (myocardial infarction) G8 MOTHER G8 FATHER G8 BROTHER FH: cancer G8 BROTHER G8 SISTER G8 SISTER FH: cancer G8 BROTHER G8 SISTER G8 SISTER Unknown Review of Systems Respiratory: Shortness of breath Cardiovascular: No: Chest Pain, Palpitations Musculoskeletal: other (Hip pain), neck pain Allergies: Coded Allergies: Sulfa (Sulfonamide Antibiotics) (Verified Allergy, Unknown, 06/06/21) Objective Vitals and I/O Vital Sign - Last 24 Hours 06/08/21 06/08/21 06/08/21 06/08/21 16:15 16:30 16:45 17:00 Pulse 106 96 93 93 Resp 23 16 23 22 B/P (MAP) 112/64 (80) 111/77 (88) Pulse Ox 96 98 97 97 06/08/21 06/08/21 06/08/21 06/08/21 17:15 17:30 17:45 18:00 Temp 98.3 Pulse 90 99 89 95 Resp 21 20 21 22 B/P (MAP) 129/81 (97) 149/61 (90) Pulse Ox 98 97 99 93 O2 Delivery Room Air 06/08/21 06/08/21 06/08/21 06/08/21 18:15 18:30 18:45 19:00 Pulse 101 98 99 108 Resp B/P (MAP) 137/72 (93) 123/62 (82) Pulse Ox 97 94 92 92 O2 Delivery Room Air 06/08/21 06/08/21 06/08/21 06/09/21 20:59 21:00 23:54 01:25 Temp 99.6 99.9 Pulse 88 88 64 Resp B/P (MAP) 114/70 (85) 102/61 (75) Pulse Ox 94 94 100 O2 Delivery Room Air Room Air Room Air 06/09/21 06/09/21 06/09/21 06/09/21 04:06 07:20 08:34 08:39 Temp 99.3 98.9 Pulse 69 73 77 Resp B/P (MAP) 112/55 (74) 111/65 (80) Pulse Ox 90 89 91 O2 Delivery Room Air Room Air FiO2 21 06/09/21 06/09/21 11:21 15:06 Temp 98.9 98.5 Pulse 63 64 Resp B/P (MAP) 93/51 (65) 102/57 (72) Pulse Ox 89 90 Intake and Output 06/09/21 07:00 Intake Total 1307.5 ml Output Total 1800 ml Balance -492.5 ml General: Oriented X3, moderate distress HEENT: Atraumatic, PERRLA Lungs: Other (Few bibasilar crackles) Heart: Other (Irregular irregular tachycardic) Extremities: No clubbing, No cyanosis, Other (Hip tenderness) Neuro: Normal speech, Normal tone Psych/Mental Status: Mental status NL, Mood NL All Results(Lab/Rad) Laboratory Tests Test 06/06/21 19:32 06/06/21 21:56 06/07/21 01:26 06/07/21 07:27 White Blood Count 9.6 10^3/uL 10.6 10^3/uL Red Blood Count 4.16 10^6/uL 4.06 10^6/uL Hemoglobin 12.1 g/dL 11.9 g/dL Hematocrit 38.3 % 37.8 % Mean Corpuscular Volume 92.1 fL 93.1 fL Mean Corpuscular Hemoglobin 29.1 pg 29.3 pg Mean Corpuscular Hemoglobin Concent 31.6 g/dL 31.5 g/dL Red Cell Distribution Width 14.6 % 14.6 % Platelet Count 168 10^3/uL 180 10^3/uL Mean Platelet Volume 11.3 fL 11.3 fL Sodium Level 143 mmol/L 140 mmol/L Potassium Level 4.1 mmol/L 4.1 mmol/L Chloride Level 107.0 mmol/L 104.0 mmol/L Carbon Dioxide Level 25.3 mmol/L 28.1 mmol/L Anion Gap 14.8 12.0 Blood Urea Nitrogen 28 mg/dL 29 mg/dL Creatinine 1.92 mg/dL 2.43 mg/dL Estimated GFR () 31.3 23.9 Est GFR (CKD-EPI)(Non-Afr [place]) 25.9 19.7 BUN/Creatinine Ratio 14.0 11.0 Glucose Level 121 mg/dL 183 mg/dL Calcium Level 8.7 mg/dL 8.9 mg/dL Magnesium Level 1.7 mg/dL Total Bilirubin 0.6 mg/dL 0.9 mg/dL Aspartate Amino Transf (AST/SGOT) 14 U/L 41 U/L Alanine Aminotransferase (ALT/SGPT) 24 U/L 31 U/L Alkaline Phosphatase 118 U/L 126 U/L Troponin I High Sensitivity 225 ng/L 220 ng/L 176 ng/L Pro-B-Type Natriuretic Peptide 5159 pg/mL Total Protein 7.2 g/dL 7.1 g/dL Albumin 2.9 g/dL 2.7 g/dL Globulin 4.3 4.4 Albumin/Globulin Ratio 0.674 0.613 Thyroid Stimulating Hormone (TSH) 3.598 mIU/mL Bedside Glucose 121 Activated Partial Thromboplast Time 31.9 SEC 32.9 SEC Neutrophils (%) (Auto) 74.2 % Lymphocytes (%) (Auto) 19.9 % Monocytes (%) (Auto) 5.2 % Neutrophils # (Auto) 7.8 10^3/uL Lymphocytes # (Auto) 2.10 10^3/uL1 Monocytes # (Auto) 0.6 10^3/uL Absolute Immature Granulocyte (auto 0.03 10^3 u/L Absolute Eosinophils (auto) 0.0 10^3/uL Immature Granulocytes % 0.30 % Eosinophils % 0.4 % Basophils % 0.3 % Basophils # 0.0 10^3/uL Current Medications Medications (Trade) Dose Ordered Sig/Deloris Route PRN Reason Start Time Stop Time Status Last Admin Dose Admin Heparin Sodium (Porcine) (Heparin) 5,000 unit OT ONCE IV 06/06/21 19:30 06/06/21 19:38 DC Heparin Sodium/ Dextrose 500 ml @ 0 mls/hr TITRATE IV 06/06/21 19:30 07/06/21 19:29 06/05/21 21:40 Amiodarone HCL/ Dextrose 200 ml @ 34 mls/hr OT IV 06/07/21 02:00 07/07/21 01:59 Amiodarone HCL/ Dextrose 200 ml @ 17 mls/hr OT IV 06/06/21 20:00 07/06/21 19:59 Amiodarone HCl 150 mg/Dextrose 103 ml @ 600 mls/hr OT ONCE IV 06/06/21 19:50 06/06/21 20:00 DC 06/06/21 20:38 Amiodarone HCl (Nexterone) 150 mg STK-MED ONCE .ROUTE 06/06/21 19:39 06/06/21 19:40 DC Acetaminophen (Tylenol) 325 mg Q4H PRN PO PAIN 1 - 3 06/06/21 20:00 07/06/21 19:59 06/07/21 03:53 Pantoprazole Sodium (Protonix) 40 mg DAILY PO 06/07/21 09:00 07/07/21 08:59 06/07/21 09:00 Insulin Human Lispro (Humalog) 0-140 0 Units 141-200... ACHS SQ 06/06/21 21:00 07/06/21 20:59 06/07/21 07:30 Dextrose 1,000 ml @ 100 mls/hr Q10H PRN IV hypoglycemia 06/06/21 20:00 07/06/21 19:59 Dextrose (Dextrose 50%-Water Syringe) 25 ml PRN PRN IV hypoglycemia 06/06/21 20:00 07/06/21 19:59 Aspirin (Aspirin) 325 mg DAILY PO 06/07/21 09:00 07/07/21 08:59 06/07/21 09:00 Amiodarone HCl (Nexterone) 150 mg STK-MED ONCE .ROUTE 06/06/21 19:40 06/06/21 19:41 DC Sodium Chloride 250 ml @ ud STK-MED ONCE .ROUTE 06/06/21 19:40 06/06/21 19:41 DC Metoprolol Succinate (Toprol Xl) 50 mg STAT STAT PO 06/06/21 22:16 06/06/21 22:30 DC Metoprolol Succinate (Toprol Xl) 50 mg DAILY PO 06/07/21 09:00 07/07/21 08:59 06/07/21 09:00 Furosemide (Lasix) 40 mg DAILY IV 06/07/21 09:00 07/07/21 08:59 06/07/21 09:00 Furosemide (Lasix) 40 mg STAT STAT IV 06/06/21 22:16 06/06/21 22:30 DC 06/06/21 22:16 Lisinopril (Zestril) 20 mg DAILY PO 06/07/21 09:00 07/07/21 08:59 06/07/21 09:00 Furosemide (Lasix) 40 mg STAT STAT IV 06/06/21 22:40 06/06/21 22:45 DC Morphine Sulfate (Morphine Sulfate) 1 mg Q4H PRN IV PAIN 7 - 10 06/06/21 23:00 07/06/21 22:59 06/07/21 03:43 Assessment/Plan Assessment/Plan Assessment/Plan Plan Plan as per physician credentialing specialist : At this time, no coronary intervention is needed. Aggressive lifestyle modification changes have been strongly advised. The patient will certainly benefit from statin therapy. 65 mL of Visipaque contrast was utilized for the entire procedure. Visipaque contrast is known to have very minimal nephrotoxic effect. The patient can be discharged home from a cardiac standpoint to follow up with her primary physician credentialing specialist within 1 week of discharge. Continue to monitor kidney function Appreciate nephrology input Possible discharge in 1 or 2 days if her kidney function start to improve. Problems: (1) Acute kidney injury ICD Code: N17.9 - Acute kidney failure, unspecified SNOMED: 1676611, 22548404 (2) Atrial fibrillation, rapid ICD Code: I48.91 - Unspecified atrial fibrillation SNOMED: 951855776 (3) NSTEMI (non-ST elevated myocardial infarction) ICD Code: I21.4 - Non-ST elevation (NSTEMI) myocardial infarction SNOMED: 40006582 (4) CKD stage 4 due to type 1 diabetes mellitus ICD Code: E10.22 - Type 1 diabetes mellitus with diabetic chronic kidney disease; N18.4 - Chronic kidney disease, stage 4 (severe) SNOMED: 82712887, 73120210067683 (5) Diabetes ICD Code: E11.9 - Type 2 diabetes mellitus without complications SNOMED: 63103600 MATT SERRATO MD Jun 09, 2021 16:14
[2021-06-09] MEDS: ULTRAM PO PRN (16:40)
[2021-06-09 20:40] VITALS: BP 91/59
[2021-06-09] MEDS: REQUIP PO SCH (21:25)
[2021-06-10 00:48] VITALS: BP 102/54
[2021-06-10 05:36] VITALS: BP 103/54
[2021-06-10 06:22] LABS: BASOPHIL % 0.3 % (0.0-0.2); EOSINOPHIL # 0.2 10^3/uL (0.0-0.2); EOSINOPHIL % 1.9 % (0.0-5.0); LYMPHOCYTES # 1.75 10^3/uL1 (1.0-4.8); MEAN CORP HGB 29.5 pg (26-34); MONOCYTES # 0.5 10^3/uL (0.3-0.8); MONOCYTES % 5.7 % (5.0-12.0); NEUTROPHIL # 6.3 10^3/uL (1.8-7.7); NEUTROPHILS % 71.9 % (41.0-85.0); PLATELET COUNT 184 10^3/uL (150-400); RED CELL DISTRIBUTION WIDTH 14.5 % (11.5-14.5)
[2021-06-10 06:38] LABS: CARBON DIOXIDE 21.5 mmol/L (20.0-32)
[2021-06-10] MEDS: HUMALOG SQ SCH ×4 (07:30→21:37)
[2021-06-10] MEDS: ULTRAM PO PRN (09:18)
[2021-06-10] MEDS: ASPIRIN PO SCH (09:18)
[2021-06-10] MEDS: ELIQUIS PO SCH ×2 (09:18→20:23)
[2021-06-10] MEDS: PROTONIX PO SCH (09:19)
[2021-06-10] MEDS: BETAPACE PO SCH ×2 (09:19→20:23)
--- NOTE | 2021-06-10 10:00 | PRM.PN ---
PROGRESS NOTE S/O/A/P RENAL With consent, Pt has been seen/examined via HIPAA compliant Audio-Visual Sync Tele-health platform with nursing at the bedside. Care d/w team. No significant overnight events or significant changes. Interval Hx reviewed. EMR reviewed with vitals, meds, labs as noted Pt is feeling about the same... 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 Cade in [place], [place] - YARED with what was hoping to be a plateau yesterday, now a bit worse once again with Cr --> 3.59 - UOP 500ml - s/p Afib RVR; hypotension; DINESH; diuresis and heart cath (06/08/21) - We are now 48 hrs post cath, when we are likely to see the biggest effect of ARMAND - Please continue to HOLD lasix and lisinopril - There is no role at this time for renal PPx - No urgent need for SENIOR STATISTICIAN - Will continue to monitor renal function and trend Cr - Please avoid nephrotoxins and maintain MAP >60 Electrolytes - Balanced Acid/Base - Balanced BMD - Will follow PTH, Vit D and PO4 as appropriate Anemia - Hgb in goal Thank You! Luisa Conner [place] [facility] [phone] (c) [phone] (o) LUISA CONNER MD Jun 10, 2021 10:00
[2021-06-10 11:28] VITALS: BP 120/55
--- NOTE | 2021-06-10 12:14 | PRM.PN ---
Subjective Subjective Date: Jun 10, 2021 Time: 09:00 Subjective No new complaints. Creatinine still trending up 3.59. Patient is being seen by printer [employer] print [employer], appreciate input. Patient History: Alzheimer's disease G8 SISTER Cerebrovascular disorder G8 MOTHER G8 FATHER Chronic obstructive pulmonary disease G8 BROTHER Congestive heart failure G8 MOTHER G8 FATHER Diabetes mellitus G8 MOTHER G8 FATHER FH: [place] (myocardial infarction) G8 MOTHER G8 FATHER G8 BROTHER FH: cancer G8 BROTHER G8 SISTER G8 SISTER FH: cancer G8 BROTHER G8 SISTER G8 SISTER Unknown Review of Systems Respiratory: Shortness of breath Cardiovascular: No: Chest Pain, Palpitations Musculoskeletal: other (Hip pain), neck pain Allergies: Coded Allergies: Sulfa (Sulfonamide Antibiotics) (Verified Allergy, Unknown, 06/06/21) Objective Vitals and I/O Vital Sign - Last 24 Hours 06/09/21 06/09/21 06/09/21 06/09/21 15:06 20:40 20:41 22:39 Temp 98.5 98.1 Pulse 64 62 62 Resp 19 15 15 B/P (MAP) 102/57 (72) 91/59 (70) Pulse Ox 90 91 91 O2 Delivery Room Air Room Air 06/10/21 06/10/21 06/10/21 06/10/21 00:48 05:36 09:20 11:25 Temp 98.6 98.1 Pulse 64 63 64 Resp 16 18 18 B/P (MAP) 102/54 (70) 103/54 (70) Pulse Ox 90 92 91 O2 Delivery Room Air Room Air FiO2 21 06/10/21 06/10/21 11:28 11:52 Temp 98.5 Pulse 64 Resp 18 B/P (MAP) 120/55 (76) Pulse Ox 95 O2 Delivery Room Air Room Air Intake and Output 06/10/21 07:00 Intake Total 835 ml Balance 835 ml General: Oriented X3, moderate distress HEENT: Atraumatic, PERRLA Lungs: Other (Few bibasilar crackles) Heart: Other (Irregular irregular ) Extremities: No clubbing, No cyanosis, Other (Hip tenderness) Neuro: Normal speech, Normal tone Psych/Mental Status: Mental status NL, Mood NL All Results(Lab/Rad) Laboratory Tests Test 06/06/21 19:32 06/06/21 21:56 06/07/21 01:26 06/07/21 07:27 White Blood Count 9.6 10^3/uL 10.6 10^3/uL Red Blood Count 4.16 10^6/uL 4.06 10^6/uL Hemoglobin 12.1 g/dL 11.9 g/dL Hematocrit 38.3 % 37.8 % Mean Corpuscular Volume 92.1 fL 93.1 fL Mean Corpuscular Hemoglobin 29.1 pg 29.3 pg Mean Corpuscular Hemoglobin Concent 31.6 g/dL 31.5 g/dL Red Cell Distribution Width 14.6 % 14.6 % Platelet Count 168 10^3/uL 180 10^3/uL Mean Platelet Volume 11.3 fL 11.3 fL Sodium Level 143 mmol/L 140 mmol/L Potassium Level 4.1 mmol/L 4.1 mmol/L Chloride Level 107.0 mmol/L 104.0 mmol/L Carbon Dioxide Level 25.3 mmol/L 28.1 mmol/L Anion Gap 14.8 12.0 Blood Urea Nitrogen 28 mg/dL 29 mg/dL Creatinine 1.92 mg/dL 2.43 mg/dL Estimated GFR () 31.3 23.9 Est GFR (CKD-EPI)(Non-Afr Guinean) 25.9 19.7 BUN/Creatinine Ratio 14.0 11.0 Glucose Level 121 mg/dL 183 mg/dL Calcium Level 8.7 mg/dL 8.9 mg/dL Magnesium Level 1.7 mg/dL Total Bilirubin 0.6 mg/dL 0.9 mg/dL Aspartate Amino Transf (AST/SGOT) 14 U/L 41 U/L Alanine Aminotransferase (ALT/SGPT) 24 U/L 31 U/L Alkaline Phosphatase 118 U/L 126 U/L Troponin I High Sensitivity 225 ng/L 220 ng/L 176 ng/L Pro-B-Type Natriuretic Peptide 5159 pg/mL Total Protein 7.2 g/dL 7.1 g/dL Albumin 2.9 g/dL 2.7 g/dL Globulin 4.3 4.4 Albumin/Globulin Ratio 0.674 0.613 Thyroid Stimulating Hormone (TSH) 3.598 mIU/mL Bedside Glucose 121 Activated Partial Thromboplast Time 31.9 SEC 32.9 SEC Neutrophils (%) (Auto) 74.2 % Lymphocytes (%) (Auto) 19.9 % Monocytes (%) (Auto) 5.2 % Neutrophils # (Auto) 7.8 10^3/uL Lymphocytes # (Auto) 2.10 10^3/uL1 Monocytes # (Auto) 0.6 10^3/uL Absolute Immature Granulocyte (auto 0.03 10^3 u/L Absolute Eosinophils (auto) 0.0 10^3/uL Immature Granulocytes % 0.30 % Eosinophils % 0.4 % Basophils % 0.3 % Basophils # 0.0 10^3/uL Current Medications Medications (Trade) Dose Ordered Sig/Deloris Route PRN Reason Start Time Stop Time Status Last Admin Dose Admin Heparin Sodium (Porcine) (Heparin) 5,000 unit OT ONCE IV 06/06/21 19:30 06/06/21 19:38 DC Heparin Sodium/ Dextrose 500 ml @ 0 mls/hr TITRATE IV 06/06/21 19:30 07/06/21 19:29 06/05/21 21:40 Amiodarone HCL/ Dextrose 200 ml @ 34 mls/hr OT IV 06/07/21 02:00 07/07/21 01:59 Amiodarone HCL/ Dextrose 200 ml @ 17 mls/hr OT IV 06/06/21 20:00 07/06/21 19:59 Amiodarone HCl 150 mg/Dextrose 103 ml @ 600 mls/hr OT ONCE IV 06/06/21 19:50 06/06/21 20:00 DC 06/06/21 20:38 Amiodarone HCl (Nexterone) 150 mg STK-MED ONCE .ROUTE 06/06/21 19:39 06/06/21 19:40 DC Acetaminophen (Tylenol) 325 mg Q4H PRN PO PAIN 1 - 3 06/06/21 20:00 07/06/21 19:59 06/07/21 03:53 Pantoprazole Sodium (Protonix) 40 mg DAILY PO 06/07/21 09:00 07/07/21 08:59 06/07/21 09:00 Insulin Human Lispro (Humalog) 0-140 0 Units 141-200... ACHS SQ 06/06/21 21:00 07/06/21 20:59 06/07/21 07:30 Dextrose 1,000 ml @ 100 mls/hr Q10H PRN IV hypoglycemia 06/06/21 20:00 07/06/21 19:59 Dextrose (Dextrose 50%-Water Syringe) 25 ml PRN PRN IV hypoglycemia 06/06/21 20:00 07/06/21 19:59 Aspirin (Aspirin) 325 mg DAILY PO 06/07/21 09:00 07/07/21 08:59 06/07/21 09:00 Amiodarone HCl (Nexterone) 150 mg STK-MED ONCE .ROUTE 06/06/21 19:40 06/06/21 19:41 DC Sodium Chloride 250 ml @ ud STK-MED ONCE .ROUTE 06/06/21 19:40 06/06/21 19:41 DC Metoprolol Succinate (Toprol Xl) 50 mg STAT STAT PO 06/06/21 22:16 06/06/21 22:30 DC Metoprolol Succinate (Toprol Xl) 50 mg DAILY PO 06/07/21 09:00 07/07/21 08:59 06/07/21 09:00 Furosemide (Lasix) 40 mg DAILY IV 06/07/21 09:00 07/07/21 08:59 06/07/21 09:00 Furosemide (Lasix) 40 mg STAT STAT IV 06/06/21 22:16 06/06/21 22:30 DC 06/06/21 22:16 Lisinopril (Zestril) 20 mg DAILY PO 06/07/21 09:00 07/07/21 08:59 06/07/21 09:00 Furosemide (Lasix) 40 mg STAT STAT IV 06/06/21 22:40 06/06/21 22:45 DC Morphine Sulfate (Morphine Sulfate) 1 mg Q4H PRN IV PAIN 7 - 10 06/06/21 23:00 07/06/21 22:59 06/07/21 03:43 Assessment/Plan Assessment/Plan Assessment/Plan Plan Plan as per homeland security program specialist : At this time, no coronary intervention is needed. Aggressive lifestyle modification changes have been strongly advised. The patient will certainly benefit from statin therapy. 65 mL of Visipaque contrast was utilized for the entire procedure. Visipaque contrast is known to have very minimal nephrotoxic effect. The patient can be discharged home from a cardiac standpoint to follow up with her primary homeland security program specialist within 1 week of discharge. Continue to monitor kidney function Appreciate nephrology input Possible discharge in 1 or 2 days if her kidney function start to improve. 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 Cade in [place], [place] - YARED with what was hoping to be a plateau yesterday, now a bit worse once again with Cr --> 3.59 - UOP 500ml - s/p Afib RVR; hypotension; DINESH; diuresis and heart cath (06/08/21) - We are now 48 hrs post cath, when we are likely to see the biggest effect of ARMAND - Please continue to HOLD lasix and lisinopril - There is no role at this time for renal PPx - No urgent need for CLAIMS SUPERVISOR - Will continue to monitor renal function and trend Cr - Please avoid nephrotoxins and maintain MAP >60 Electrolytes - Balanced Acid/Base - Balanced BMD - Will follow PTH, Vit D and PO4 as appropriate Anemia - Hgb in goal DVT prophylaxis as appropriate Problems: (1) Acute kidney injury ICD Code: N17.9 - Acute kidney failure, unspecified SNOMED: 0411950, 48812002 (2) CKD stage 4 due to type 1 diabetes mellitus ICD Code: E10.22 - Type 1 diabetes mellitus with diabetic chronic kidney disease; N18.4 - Chronic kidney disease, stage 4 (severe) SNOMED: 76611673, 65901205531557 (3) NSTEMI (non-ST elevated myocardial infarction) ICD Code: I21.4 - Non-ST elevation (NSTEMI) myocardial infarction SNOMED: 20507308 (4) Atrial fibrillation, rapid ICD Code: I48.91 - Unspecified atrial fibrillation SNOMED: 306767124 (5) Diabetes ICD Code: E11.9 - Type 2 diabetes mellitus without complications SNOMED: 65038215 MATT SERRATO MD Jun 10, 2021 12:14
[2021-06-10] MEDS ORDERED: MORPHINE SULFATE ONE (12:58)
[2021-06-10] MEDS: MORPHINE SULFATE IV PRN (12:59)
[2021-06-10] MEDS ORDERED: DEXTROSE 10%-WATER IV SOLUTION IV PRN (14:25)
[2021-06-10 15:47] VITALS: BP 88/49
[2021-06-10 20:10] VITALS: BP 92/49
[2021-06-10] MEDS: REQUIP PO SCH (20:23)
[2021-06-10] MEDS ORDERED: ANALPRAM 2.5% TP PRN (22:00)
[2021-06-11 00:10] VITALS: BP 105/57
[2021-06-11] MEDS: TYLENOL PO PRN (01:20)
[2021-06-11 03:40] VITALS: BP 97/49
--- NOTE | 2021-06-11 03:51 | PRM.PN ---
Subjective Subjective Date: Jun 11, 2021 Time: 03:44 Subjective Patient examined at bedside discussed we are waiting for improvement of her kidney function prior to discharge Patient History: Alzheimer's disease G8 SISTER Cerebrovascular disorder G8 MOTHER G8 FATHER Chronic obstructive pulmonary disease G8 BROTHER Congestive heart failure G8 MOTHER G8 FATHER Diabetes mellitus G8 MOTHER G8 FATHER FH: [place] (myocardial infarction) G8 MOTHER G8 FATHER G8 BROTHER FH: cancer G8 BROTHER G8 SISTER G8 SISTER FH: cancer G8 BROTHER G8 SISTER G8 SISTER Unknown VTE VTE Risk Total Score: >5 VTE Risk Score VTE Risk: Score 0-1 = Low Risk (Aggressive mobilization; early ambulation; no VTE prophylaxis required) Score 2: Moderate Risk (Intermittent/Pneumatic Compression Device OR Lovenox/Heparin/Coumadin) Score 3-4: High Risk (Intermittent/Pneumatic Compression Device AND Lovenox/Heparin/Coumadin) Score > or =5: Highest Risk (Intermittent/Pneumatic Compression Device AND Lovenox/Heparin/Coumadin) Antico:Hep/LMWH/Coum/Xarelto: Yes Mechanical device ordered: Yes Review of Systems Constitutional: No: Fever, Chills, Sweats, Weakness, Malaise, Other Eyes: No: Pain, Vision change, Conjunctivae inflammation, Eyelid inflammation, Other, Redness ENT: No: Ear pain, Ear discharge, Nose pain, Nose discharge, Nose congestion, Mouth pain, Mouth swelling, Throat pain, Throat swelling, Other Respiratory: Shortness of breath Cardiovascular: No: Chest Pain, Palpitations Gastrointestinal: No: Nausea, Vomiting, Abdominal Pain, Diarrhea, Constipation, Melena, Hematochezia, Other Genitourinary: No Dysuria, No Frequency, No Incontinence, No Hematuria, No Retention, No Other Musculoskeletal: other (Hip pain), neck pain Skin: No: Rash, Lesions, Jaundice, Bruising, Other Neurological: No: Weakness, Numbness, Incoordination, Change in speech, Confusion, Seizures, Other Allergies: Coded Allergies: Sulfa (Sulfonamide Antibiotics) (Verified Allergy, Unknown, 06/06/21) Objective General: Oriented X3, No acute distress, moderate distress HEENT: Atraumatic, PERRLA Lungs: Other (Few bibasilar crackles) Heart: Other (Irregular irregular ) Extremities: No clubbing, No cyanosis, Other (Hip tenderness) Neuro: Normal speech, Normal tone Psych/Mental Status: Mental status NL, Mood NL All Results(Lab/Rad) Laboratory Tests Test 06/06/21 19:32 06/06/21 21:56 06/07/21 01:26 06/07/21 07:27 White Blood Count 9.6 10^3/uL 10.6 10^3/uL Red Blood Count 4.16 10^6/uL 4.06 10^6/uL Hemoglobin 12.1 g/dL 11.9 g/dL Hematocrit 38.3 % 37.8 % Mean Corpuscular Volume 92.1 fL 93.1 fL Mean Corpuscular Hemoglobin 29.1 pg 29.3 pg Mean Corpuscular Hemoglobin Concent 31.6 g/dL 31.5 g/dL Red Cell Distribution Width 14.6 % 14.6 % Platelet Count 168 10^3/uL 180 10^3/uL Mean Platelet Volume 11.3 fL 11.3 fL Sodium Level 143 mmol/L 140 mmol/L Potassium Level 4.1 mmol/L 4.1 mmol/L Chloride Level 107.0 mmol/L 104.0 mmol/L Carbon Dioxide Level 25.3 mmol/L 28.1 mmol/L Anion Gap 14.8 12.0 Blood Urea Nitrogen 28 mg/dL 29 mg/dL Creatinine 1.92 mg/dL 2.43 mg/dL Estimated GFR () 31.3 23.9 Est GFR (CKD-EPI)(Non-Afr Turkish) 25.9 19.7 BUN/Creatinine Ratio 14.0 11.0 Glucose Level 121 mg/dL 183 mg/dL Calcium Level 8.7 mg/dL 8.9 mg/dL Magnesium Level 1.7 mg/dL Total Bilirubin 0.6 mg/dL 0.9 mg/dL Aspartate Amino Transf (AST/SGOT) 14 U/L 41 U/L Alanine Aminotransferase (ALT/SGPT) 24 U/L 31 U/L Alkaline Phosphatase 118 U/L 126 U/L Troponin I High Sensitivity 225 ng/L 220 ng/L 176 ng/L Pro-B-Type Natriuretic Peptide 5159 pg/mL Total Protein 7.2 g/dL 7.1 g/dL Albumin 2.9 g/dL 2.7 g/dL Globulin 4.3 4.4 Albumin/Globulin Ratio 0.674 0.613 Thyroid Stimulating Hormone (TSH) 3.598 mIU/mL Bedside Glucose 121 Activated Partial Thromboplast Time 31.9 SEC 32.9 SEC Neutrophils (%) (Auto) 74.2 % Lymphocytes (%) (Auto) 19.9 % Monocytes (%) (Auto) 5.2 % Neutrophils # (Auto) 7.8 10^3/uL Lymphocytes # (Auto) 2.10 10^3/uL1 Monocytes # (Auto) 0.6 10^3/uL Absolute Immature Granulocyte (auto 0.03 10^3 u/L Absolute Eosinophils (auto) 0.0 10^3/uL Immature Granulocytes % 0.30 % Eosinophils % 0.4 % Basophils % 0.3 % Basophils # 0.0 10^3/uL Current Medications Medications (Trade) Dose Ordered Sig/Deloris Route PRN Reason Start Time Stop Time Status Last Admin Dose Admin Heparin Sodium (Porcine) (Heparin) 5,000 unit OT ONCE IV 06/06/21 19:30 06/06/21 19:38 DC Heparin Sodium/ Dextrose 500 ml @ 0 mls/hr TITRATE IV 06/06/21 19:30 07/06/21 19:29 06/05/21 21:40 Amiodarone HCL/ Dextrose 200 ml @ 34 mls/hr OT IV 06/07/21 02:00 07/07/21 01:59 Amiodarone HCL/ Dextrose 200 ml @ 17 mls/hr OT IV 06/06/21 20:00 07/06/21 19:59 Amiodarone HCl 150 mg/Dextrose 103 ml @ 600 mls/hr OT ONCE IV 06/06/21 19:50 06/06/21 20:00 DC 06/06/21 20:38 Amiodarone HCl (Nexterone) 150 mg STK-MED ONCE .ROUTE 06/06/21 19:39 06/06/21 19:40 DC Acetaminophen (Tylenol) 325 mg Q4H PRN PO PAIN 1 - 3 06/06/21 20:00 07/06/21 19:59 06/07/21 03:53 Pantoprazole Sodium (Protonix) 40 mg DAILY PO 06/07/21 09:00 07/07/21 08:59 06/07/21 09:00 Insulin Human Lispro (Humalog) 0-140 0 Units 141-200... ACHS SQ 06/06/21 21:00 07/06/21 20:59 06/07/21 07:30 Dextrose 1,000 ml @ 100 mls/hr Q10H PRN IV hypoglycemia 06/06/21 20:00 07/06/21 19:59 Dextrose (Dextrose 50%-Water Syringe) 25 ml PRN PRN IV hypoglycemia 06/06/21 20:00 07/06/21 19:59 Aspirin (Aspirin) 325 mg DAILY PO 06/07/21 09:00 07/07/21 08:59 06/07/21 09:00 Amiodarone HCl (Nexterone) 150 mg STK-MED ONCE .ROUTE 06/06/21 19:40 06/06/21 19:41 DC Sodium Chloride 250 ml @ ud STK-MED ONCE .ROUTE 06/06/21 19:40 06/06/21 19:41 DC Metoprolol Succinate (Toprol Xl) 50 mg STAT STAT PO 06/06/21 22:16 06/06/21 22:30 DC Metoprolol Succinate (Toprol Xl) 50 mg DAILY PO 06/07/21 09:00 07/07/21 08:59 06/07/21 09:00 Furosemide (Lasix) 40 mg DAILY IV 06/07/21 09:00 07/07/21 08:59 06/07/21 09:00 Furosemide (Lasix) 40 mg STAT STAT IV 06/06/21 22:16 06/06/21 22:30 DC 06/06/21 22:16 Lisinopril (Zestril) 20 mg DAILY PO 06/07/21 09:00 07/07/21 08:59 06/07/21 09:00 Furosemide (Lasix) 40 mg STAT STAT IV 06/06/21 22:40 06/06/21 22:45 DC Morphine Sulfate (Morphine Sulfate) 1 mg Q4H PRN IV PAIN 7 - 10 06/06/21 23:00 07/06/21 22:59 06/07/21 03:43 Course Sepsis Screening Results: Posi: NEGATIVE Sepsis Qualifier/Stage: NO DEFINITE RISK Vitals & review Data Laboratory Tests Test 06/09/21 06:13 06/09/21 08:19 06/09/21 11:16 06/09/21 16:05 Bedside Glucose 119 144 122 White Blood Count 10.2 10^3/uL Red Blood Count 3.95 10^6/uL Hemoglobin 11.5 g/dL Hematocrit 36.6 % Mean Corpuscular Volume 92.7 fL Mean Corpuscular Hemoglobin 29.1 pg Mean Corpuscular Hemoglobin Concent 31.4 g/dL Red Cell Distribution Width 14.5 % Platelet Count 202 10^3/uL Mean Platelet Volume 11.2 fL Sodium Level 139 mmol/L Potassium Level 3.9 mmol/L Chloride Level 106.0 mmol/L Carbon Dioxide Level 23.0 mmol/L Glucose Level 126 mg/dL Blood Urea Nitrogen 54 mg/dL Creatinine 3.19 mg/dL Calcium Level 8.7 mg/dL Anion Gap 13.9 Estimated GFR () 17.4 Est GFR (CKD-EPI)(Non-Afr Turkish) 14.4 BUN/Creatinine Ratio 16.0 Test 06/09/21 21:06 06/10/21 05:35 06/10/21 11:55 06/10/21 17:02 Bedside Glucose 124 129 102 White Blood Count 8.7 10^3/uL Red Blood Count 3.76 10^6/uL Hemoglobin 11.1 g/dL Hematocrit 35.0 % Mean Corpuscular Volume 93.1 fL Mean Corpuscular Hemoglobin 29.5 pg Mean Corpuscular Hemoglobin Concent 31.7 g/dL Red Cell Distribution Width 14.5 % Platelet Count 184 10^3/uL Mean Platelet Volume 11.6 fL Neutrophils (%) (Auto) 71.9 % Lymphocytes (%) (Auto) 20.0 % Monocytes (%) (Auto) 5.7 % Neutrophils # (Auto) 6.3 10^3/uL Lymphocytes # (Auto) 1.75 10^3/uL1 Monocytes # (Auto) 0.5 10^3/uL Absolute Immature Granulocyte (auto 0.02 10^3 u/L Absolute Eosinophils (auto) 0.2 10^3/uL Immature Granulocytes % 0.20 % Eosinophils % 1.9 % Basophils % 0.3 % Basophils # 0.0 10^3/uL Sodium Level 138 mmol/L Potassium Level 3.9 mmol/L Chloride Level 105.0 mmol/L Carbon Dioxide Level 21.5 mmol/L Anion Gap 15.4 Blood Urea Nitrogen 69 mg/dL Creatinine 3.59 mg/dL Estimated GFR () 15.2 Est GFR (CKD-EPI)(Non-Afr Turkish) 12.6 BUN/Creatinine Ratio 19.0 Glucose Level 123 mg/dL Calcium Level 8.7 mg/dL Total Bilirubin 0.3 mg/dL Aspartate Amino Transf (AST/SGOT) 12 U/L Alanine Aminotransferase (ALT/SGPT) 16 U/L Alkaline Phosphatase 102 U/L Total Protein 6.8 g/dL Albumin 2.6 g/dL Globulin 4.2 Albumin/Globulin Ratio 0.619 Test 06/10/21 20:03 Bedside Glucose 111 Current Medications Medications (Trade) Dose Ordered Sig/Deloris PRN Reason Start Time Stop Time Status Last Admin Dextrose (Dextrose 10%-Water Iv Solution) 125 ml PRN PRN hypoglycemia 06/10/21 14:25 07/06/21 19:59 Hydrocortisone (Analpram 2.5%) 1 gm BID PRN ITCHING 06/10/21 22:00 07/10/21 21:59 Ropinirole HCl (Requip) 0.5 mg HS 06/09/21 21:00 07/09/21 20:59 06/10/21 20:23 Tramadol HCl (Ultram) 50 mg Q6 PRN PAIN 4 - 6 06/09/21 16:30 07/09/21 16:29 06/10/21 09:18 LEVEL 1 SEPSIS INFECTION CRITE: None/Not assessed Cardiovascular Evidence: Not Assessed or None Hematologic Evidence: None/Not assessed Hepatic Evidence: None/Not assessed Metabolic Evidence: None/Not assessed Neurological Evidence: None/Not assessed Respiratory Evidence: None/Not assessed Renal Evidence: Creatinine Lvl>2.0 O2 Sat by Pulse Oximetry: 93 Oxygen Flow Rate: 0.00 Assessment/Plan Assessment/Plan Assessment/Plan Plan as per senior applications engineer At this time, no coronary intervention is needed. Aggressive lifestyle modification changes have been strongly advised. The patient will certainly benefit from statin therapy (Atorvastatin ordered). 65 mL of Visipaque contrast was utilized for the entire procedure. Visipaque contrast is known to have very minimal nephrotoxic effect. The patient can be discharged home from a cardiac standpoint to follow up with her primary senior applications engineer within 1 week of discharge. 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 Cade in [place], [place] - YARED with what was hoping to be a plateau yesterday, now a bit worse Cr 1.92-->2.43-->3.15-->3.19-->3.59-->3.76 - UOP 500ml - s/p Afib RVR; hypotension; DINESH (now held); diuresis(now held) and heart cath (06/08/21) - We are now greater than 48 hrs post cath, when we are likely to see the biggest effect of ARMAND - Please continue to HOLD lasix and lisinopril - There is no role at this time for renal PPx - No urgent need for MAGAZINE SUPERVISOR - Will continue to monitor renal function and trend Cr - Please avoid nephrotoxins and maintain MAP >60 Electrolytes - Balanced Acid/Base - Balanced BMD - Will follow PTH, Vit D and PO4 as appropriate Anemia - Hgb in goal DVT prophylaxis with Eliquis and SCDs, GI prophylaxis with Protonix FULL CODE SHYANN FLEMING MD Jun 11, 2021 03:51
[2021-06-11] MEDS ORDERED: CLARITIN ONE (06:30)
[2021-06-11] MEDS ORDERED: ZYRTEC PO PRN (06:30)
[2021-06-11] MEDS ORDERED: CLARITIN PO PRN (07:00)
[2021-06-11 07:06] LABS: BASOPHIL % 0.2 % (0.0-0.2); EOSINOPHIL # 0.1 10^3/uL (0.0-0.2); EOSINOPHIL % 1.7 % (0.0-5.0); LYMPHOCYTES # 2.23 10^3/uL1 (1.0-4.8); LYMPHOCYTES % 27.8 % (24.0-44.0); MEAN CORP HGB 29.7 pg (26-34); MONOCYTES # 0.4 10^3/uL (0.3-0.8); MONOCYTES % 5.2 % (5.0-12.0); NEUTROPHIL # 5.2 10^3/uL (1.8-7.7); NEUTROPHILS % 65.1 % (41.0-85.0); PLATELET COUNT 195 10^3/uL (150-400); RED CELL DISTRIBUTION WIDTH 14.3 % (11.5-14.5)
[2021-06-11 07:15] LABS: CARBON DIOXIDE 20.6 mmol/L (20.0-32)
[2021-06-11] MEDS: HUMALOG SQ SCH ×4 (07:30→21:00)
[2021-06-11 08:45] VITALS: BP 115/61
--- NOTE | 2021-06-11 08:56 | PRM.PN ---
PROGRESS NOTE S/O/A/P RENAL With consent, Pt has been seen/examined via HIPAA compliant Audio-Visual Sync Tele-health platform with nursing at the bedside. Care d/w team. No significant overnight events or significant changes. Interval Hx reviewed. EMR reviewed with vitals, meds, labs as noted Vitals stable, though soft in the SBP around 100s; reviewed at the bedside and documented in the EMR Comfortable, NAD Head ATNC Neck without obvious JVD Chest with equal rise and Resp unlabored Cardiac regular on monitor Abd without gross distention Ext without gross edema Neuro non focal Labs noted A/P YARED on CKD +/- ARMAND - Cr continues to worsen overall as might be expected - Again, hoping we are seeing slowed rate of rise. Cr 3.19 -> 3.59 -> 3.76 - Electrolytes and acid/base are balanced - Continue to hold DINESH/Lasix - UOP fair. Volume acceptable - No need for WATER PUMP SERVICER. Karl continue to monitor - Simply looking for a plateau in Cr at which time we can start DC planning with close f/u - It's possible for Pt to be DCd with very close lab follow-up, however, she does not have a PCP and her primary Market President comes to town once a month or so. - It would be best to follow another day or two in house until the Cr starts a down-trend and there is no evidence of uncontrolled polyuria Thank You! Luisa Conner [facility] [phone] (c) [phone] (o) LUISA CONNER MD Jun 11, 2021 08:56
[2021-06-11] MEDS ORDERED: BETAPACE PO SCH (09:00)
[2021-06-11] MEDS ORDERED: MORPHINE SULFATE ONE (09:39)
[2021-06-11] MEDS: PROTONIX PO SCH (09:40)
[2021-06-11] MEDS: ELIQUIS PO SCH ×2 (09:40→20:50)
[2021-06-11] MEDS: ASPIRIN PO SCH (09:40)
[2021-06-11] MEDS: MORPHINE SULFATE IV PRN (09:41)
[2021-06-11 11:46] VITALS: BP 110/47
[2021-06-11 15:21] VITALS: BP 103/58
[2021-06-11] MEDS ORDERED: ATIVAN PO PRN (17:00)
[2021-06-11 19:57] VITALS: BP 110/67
[2021-06-11] MEDS: REQUIP PO SCH (20:51)
[2021-06-11] MEDS ORDERED: LIPITOR PO SCH (21:00)
[2021-06-12] MEDS ORDERED: MORPHINE SULFATE ONE (03:05)
[2021-06-12] MEDS: MORPHINE SULFATE IV PRN ×2 (03:19→03:34)
--- NOTE | 2021-06-12 03:33 | PRM.PN ---
Subjective Subjective Date: Jun 12, 2021 Time: 03:30 Subjective Discussed plan with patient and evaluated at bedside Renal function now trending better. Cr 3.76 -> 3.14 UOP good with net negatve 480ml Electrolytes and acid/base balanced BP stable albeit low If Pt feel well and ready for DC per IM; okay to go with primary nephrology f/u 1-2 weeks with labs Jay Diaz Patient History: Alzheimer's disease G8 SISTER Cerebrovascular disorder G8 MOTHER G8 FATHER Chronic obstructive pulmonary disease G8 BROTHER Congestive heart failure G8 MOTHER G8 FATHER Diabetes mellitus G8 MOTHER G8 FATHER FH: [place] (myocardial infarction) G8 MOTHER G8 FATHER G8 BROTHER FH: cancer G8 BROTHER G8 SISTER G8 SISTER FH: cancer G8 BROTHER G8 SISTER G8 SISTER Unknown VTE VTE Risk Total Score: >5 VTE Risk Score VTE Risk: Score 0-1 = Low Risk (Aggressive mobilization; early ambulation; no VTE prophylaxis required) Score 2: Moderate Risk (Intermittent/Pneumatic Compression Device OR Lovenox/Heparin/Coumadin) Score 3-4: High Risk (Intermittent/Pneumatic Compression Device AND Lovenox/Heparin/Coumadin) Score > or =5: Highest Risk (Intermittent/Pneumatic Compression Device AND Lovenox/Heparin/Coumadin) Antico:Hep/LMWH/Coum/Xarelto: Yes Mechanical device ordered: Yes Review of Systems Constitutional: No: Fever, Chills, Sweats, Weakness, Malaise, Other Eyes: No: Pain, Vision change, Conjunctivae inflammation, Eyelid inflammation, Other, Redness ENT: No: Ear pain, Ear discharge, Nose pain, Nose discharge, Nose congestion, Mouth pain, Mouth swelling, Throat pain, Throat swelling, Other Respiratory: Shortness of breath Cardiovascular: No: Chest Pain, Palpitations Gastrointestinal: No: Nausea, Vomiting, Abdominal Pain, Diarrhea, Constipation, Melena, Hematochezia, Other Genitourinary: No Dysuria, No Frequency, No Incontinence, No Hematuria, No Retention, No Other Musculoskeletal: other (Hip pain), neck pain Skin: No: Rash, Lesions, Jaundice, Bruising, Other Neurological: No: Weakness, Numbness, Incoordination, Change in speech, Confusion, Seizures, Other Allergies: Coded Allergies: Sulfa (Sulfonamide Antibiotics) (Verified Allergy, Unknown, 06/06/21) Objective General: Oriented X3, No acute distress, moderate distress HEENT: Atraumatic, PERRLA Lungs: Clear to auscultation, Normal air movement Abdomen: Soft, No tenderness Extremities: No clubbing, No cyanosis, Other (Hip tenderness) Neuro: Normal speech, Normal tone Psych/Mental Status: Mental status NL, Mood NL All Results(Lab/Rad) Laboratory Tests Test 06/06/21 19:32 06/06/21 21:56 06/07/21 01:26 06/07/21 07:27 White Blood Count 9.6 10^3/uL 10.6 10^3/uL Red Blood Count 4.16 10^6/uL 4.06 10^6/uL Hemoglobin 12.1 g/dL 11.9 g/dL Hematocrit 38.3 % 37.8 % Mean Corpuscular Volume 92.1 fL 93.1 fL Mean Corpuscular Hemoglobin 29.1 pg 29.3 pg Mean Corpuscular Hemoglobin Concent 31.6 g/dL 31.5 g/dL Red Cell Distribution Width 14.6 % 14.6 % Platelet Count 168 10^3/uL 180 10^3/uL Mean Platelet Volume 11.3 fL 11.3 fL Sodium Level 143 mmol/L 140 mmol/L Potassium Level 4.1 mmol/L 4.1 mmol/L Chloride Level 107.0 mmol/L 104.0 mmol/L Carbon Dioxide Level 25.3 mmol/L 28.1 mmol/L Anion Gap 14.8 12.0 Blood Urea Nitrogen 28 mg/dL 29 mg/dL Creatinine 1.92 mg/dL 2.43 mg/dL Estimated GFR () 31.3 23.9 Est GFR (CKD-EPI)(Non-Afr Czech) 25.9 19.7 BUN/Creatinine Ratio 14.0 11.0 Glucose Level 121 mg/dL 183 mg/dL Calcium Level 8.7 mg/dL 8.9 mg/dL Magnesium Level 1.7 mg/dL Total Bilirubin 0.6 mg/dL 0.9 mg/dL Aspartate Amino Transf (AST/SGOT) 14 U/L 41 U/L Alanine Aminotransferase (ALT/SGPT) 24 U/L 31 U/L Alkaline Phosphatase 118 U/L 126 U/L Troponin I High Sensitivity 225 ng/L 220 ng/L 176 ng/L Pro-B-Type Natriuretic Peptide 5159 pg/mL Total Protein 7.2 g/dL 7.1 g/dL Albumin 2.9 g/dL 2.7 g/dL Globulin 4.3 4.4 Albumin/Globulin Ratio 0.674 0.613 Thyroid Stimulating Hormone (TSH) 3.598 mIU/mL Bedside Glucose 121 Activated Partial Thromboplast Time 31.9 SEC 32.9 SEC Neutrophils (%) (Auto) 74.2 % Lymphocytes (%) (Auto) 19.9 % Monocytes (%) (Auto) 5.2 % Neutrophils # (Auto) 7.8 10^3/uL Lymphocytes # (Auto) 2.10 10^3/uL1 Monocytes # (Auto) 0.6 10^3/uL Absolute Immature Granulocyte (auto 0.03 10^3 u/L Absolute Eosinophils (auto) 0.0 10^3/uL Immature Granulocytes % 0.30 % Eosinophils % 0.4 % Basophils % 0.3 % Basophils # 0.0 10^3/uL Current Medications Medications (Trade) Dose Ordered Sig/Deloris Route PRN Reason Start Time Stop Time Status Last Admin Dose Admin Heparin Sodium (Porcine) (Heparin) 5,000 unit OT ONCE IV 06/06/21 19:30 06/06/21 19:38 DC Heparin Sodium/ Dextrose 500 ml @ 0 mls/hr TITRATE IV 06/06/21 19:30 07/06/21 19:29 06/05/21 21:40 Amiodarone HCL/ Dextrose 200 ml @ 34 mls/hr OT IV 06/07/21 02:00 07/07/21 01:59 Amiodarone HCL/ Dextrose 200 ml @ 17 mls/hr OT IV 06/06/21 20:00 07/06/21 19:59 Amiodarone HCl 150 mg/Dextrose 103 ml @ 600 mls/hr OT ONCE IV 06/06/21 19:50 06/06/21 20:00 DC 06/06/21 20:38 Amiodarone HCl (Nexterone) 150 mg STK-MED ONCE .ROUTE 06/06/21 19:39 06/06/21 19:40 DC Acetaminophen (Tylenol) 325 mg Q4H PRN PO PAIN 1 - 3 06/06/21 20:00 07/06/21 19:59 06/07/21 03:53 Pantoprazole Sodium (Protonix) 40 mg DAILY PO 06/07/21 09:00 07/07/21 08:59 06/07/21 09:00 Insulin Human Lispro (Humalog) 0-140 0 Units 141-200... ACHS SQ 06/06/21 21:00 07/06/21 20:59 06/07/21 07:30 Dextrose 1,000 ml @ 100 mls/hr Q10H PRN IV hypoglycemia 06/06/21 20:00 07/06/21 19:59 Dextrose (Dextrose 50%-Water Syringe) 25 ml PRN PRN IV hypoglycemia 06/06/21 20:00 07/06/21 19:59 Aspirin (Aspirin) 325 mg DAILY PO 06/07/21 09:00 07/07/21 08:59 06/07/21 09:00 Amiodarone HCl (Nexterone) 150 mg STK-MED ONCE .ROUTE 06/06/21 19:40 06/06/21 19:41 DC Sodium Chloride 250 ml @ ud STK-MED ONCE .ROUTE 06/06/21 19:40 06/06/21 19:41 DC Metoprolol Succinate (Toprol Xl) 50 mg STAT STAT PO 06/06/21 22:16 06/06/21 22:30 DC Metoprolol Succinate (Toprol Xl) 50 mg DAILY PO 06/07/21 09:00 07/07/21 08:59 06/07/21 09:00 Furosemide (Lasix) 40 mg DAILY IV 06/07/21 09:00 07/07/21 08:59 06/07/21 09:00 Furosemide (Lasix) 40 mg STAT STAT IV 06/06/21 22:16 06/06/21 22:30 DC 06/06/21 22:16 Lisinopril (Zestril) 20 mg DAILY PO 06/07/21 09:00 07/07/21 08:59 06/07/21 09:00 Furosemide (Lasix) 40 mg STAT STAT IV 06/06/21 22:40 06/06/21 22:45 DC Morphine Sulfate (Morphine Sulfate) 1 mg Q4H PRN IV PAIN 7 - 10 06/06/21 23:00 07/06/21 22:59 06/07/21 03:43 Course Sepsis Screening Results: Posi: POSITIVE Sepsis Qualifier/Stage: NO DEFINITE RISK Vitals & review Data Laboratory Tests Test 06/09/21 06:13 06/09/21 08:19 06/09/21 11:16 06/09/21 16:05 Bedside Glucose 119 144 122 White Blood Count 10.2 10^3/uL Red Blood Count 3.95 10^6/uL Hemoglobin 11.5 g/dL Hematocrit 36.6 % Mean Corpuscular Volume 92.7 fL Mean Corpuscular Hemoglobin 29.1 pg Mean Corpuscular Hemoglobin Concent 31.4 g/dL Red Cell Distribution Width 14.5 % Platelet Count 202 10^3/uL Mean Platelet Volume 11.2 fL Sodium Level 139 mmol/L Potassium Level 3.9 mmol/L Chloride Level 106.0 mmol/L Carbon Dioxide Level 23.0 mmol/L Glucose Level 126 mg/dL Blood Urea Nitrogen 54 mg/dL Creatinine 3.19 mg/dL Calcium Level 8.7 mg/dL Anion Gap 13.9 Estimated GFR () 17.4 Est GFR (CKD-EPI)(Non-Afr Czech) 14.4 BUN/Creatinine Ratio 16.0 Test 06/09/21 21:06 06/10/21 05:35 06/10/21 11:55 06/10/21 17:02 Bedside Glucose 124 129 102 White Blood Count 8.7 10^3/uL Red Blood Count 3.76 10^6/uL Hemoglobin 11.1 g/dL Hematocrit 35.0 % Mean Corpuscular Volume 93.1 fL Mean Corpuscular Hemoglobin 29.5 pg Mean Corpuscular Hemoglobin Concent 31.7 g/dL Red Cell Distribution Width 14.5 % Platelet Count 184 10^3/uL Mean Platelet Volume 11.6 fL Neutrophils (%) (Auto) 71.9 % Lymphocytes (%) (Auto) 20.0 % Monocytes (%) (Auto) 5.7 % Neutrophils # (Auto) 6.3 10^3/uL Lymphocytes # (Auto) 1.75 10^3/uL1 Monocytes # (Auto) 0.5 10^3/uL Absolute Immature Granulocyte (auto 0.02 10^3 u/L Absolute Eosinophils (auto) 0.2 10^3/uL Immature Granulocytes % 0.20 % Eosinophils % 1.9 % Basophils % 0.3 % Basophils # 0.0 10^3/uL Sodium Level 138 mmol/L Potassium Level 3.9 mmol/L Chloride Level 105.0 mmol/L Carbon Dioxide Level 21.5 mmol/L Anion Gap 15.4 Blood Urea Nitrogen 69 mg/dL Creatinine 3.59 mg/dL Estimated GFR () 15.2 Est GFR (CKD-EPI)(Non-Afr Czech) 12.6 BUN/Creatinine Ratio 19.0 Glucose Level 123 mg/dL Calcium Level 8.7 mg/dL Total Bilirubin 0.3 mg/dL Aspartate Amino Transf (AST/SGOT) 12 U/L Alanine Aminotransferase (ALT/SGPT) 16 U/L Alkaline Phosphatase 102 U/L Total Protein 6.8 g/dL Albumin 2.6 g/dL Globulin 4.2 Albumin/Globulin Ratio 0.619 Test 06/10/21 20:03 Bedside Glucose 111 Current Medications Medications (Trade) Dose Ordered Sig/Deloris PRN Reason Start Time Stop Time Status Last Admin Dextrose (Dextrose 10%-Water Iv Solution) 125 ml PRN PRN hypoglycemia 06/10/21 14:25 07/06/21 19:59 Hydrocortisone (Analpram 2.5%) 1 gm BID PRN ITCHING 06/10/21 22:00 07/10/21 21:59 Ropinirole HCl (Requip) 0.5 mg HS 06/09/21 21:00 07/09/21 20:59 06/10/21 20:23 Tramadol HCl (Ultram) 50 mg Q6 PRN PAIN 4 - 6 06/09/21 16:30 07/09/21 16:29 06/10/21 09:18 LEVEL 1 SEPSIS INFECTION CRITE: Cough/Shortness of Breath, Recent Invasive Procedure Cardiovascular Evidence: Not Assessed or None Hematologic Evidence: None/Not assessed Hepatic Evidence: None/Not assessed Metabolic Evidence: None/Not assessed Neurological Evidence: None/Not assessed Respiratory Evidence: None/Not assessed Renal Evidence: Creatinine Lvl>2.0 O2 Sat by Pulse Oximetry: 88 Oxygen Flow Rate: 0.00 Assessment/Plan Assessment/Plan Assessment/Plan 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 Aggressive lifestyle modification changes have been strongly advised. The patient will certainly benefit from statin therapy (Atorvastatin ordered). Continue to monitor kidney function sotalol for rate control Appreciate nephrology input Nephrology Recommendations: YARED on CKD +/- ARMAND - Cr continues to worsen overall as might be expected - Again, hoping we are seeing slowed rate of rise. Cr 3.19 -> 3.59 -> 3.76-->3. 14 - Electrolytes and acid/base are balanced - Continue to hold DINESH/Lasix - UOP fair. Volume acceptable - No need for DISPOSAL MAN. Will continue to monitor - Simply looking for a plateau in Cr at which time we can start DC planning with close f/u - It's possible for Pt to be DCd with very close lab follow-up, however, she does not have a PCP and her primary Belt Repairer comes to town once a month or so. - It would be best to follow another day or two in house until the Cr starts a down-trend and there is no evidence of uncontrolled polyuria Thank You! Jay [facility] [phone] (c) [phone] (o DVT prophylaxis with Eliquis and SCDs, GI prophylaxis with Protonix FULL CODE SHYANN FLEMING MD Jun 12, 2021 03:33
[2021-06-12 04:00] VITALS: BP 93/47
[2021-06-12 04:51] LABS: BASOPHIL % 0.4 % (0.0-0.2); EOSINOPHIL # 0.1 10^3/uL (0.0-0.2); EOSINOPHIL % 1.7 % (0.0-5.0); LYMPHOCYTES # 1.76 10^3/uL1 (1.0-4.8); LYMPHOCYTES % 23.4 % (24.0-44.0); MEAN CORP HGB 29.8 pg (26-34); MONOCYTES # 0.4 10^3/uL (0.3-0.8); MONOCYTES % 5.7 % (5.0-12.0); NEUTROPHIL # 5.2 10^3/uL (1.8-7.7); NEUTROPHILS % 68.8 % (41.0-85.0); PLATELET COUNT 186 10^3/uL (150-400); RED CELL DISTRIBUTION WIDTH 14.4 % (11.5-14.5)
[2021-06-12 05:08] LABS: CARBON DIOXIDE 21.4 mmol/L (20.0-32)
[2021-06-12] MEDS: HUMALOG SQ SCH ×3 (07:30→17:30)
--- NOTE | 2021-06-12 07:47 | PRM.PN ---
PROGRESS NOTE S/O/A/P RENAL EMR reviewed Renal function now trending better. Cr 3.76 -> 3.14 UOP good with net negatve 480ml Electrolytes and acid/base balanced BP stable albeit low If Pt feel well and ready for DC per IM; okay to go with primary nephrology f/u 1-2 weeks with labs LUISA Plaza MD Jun 12, 2021 07:47
[2021-06-12 08:24] VITALS: BP 133/58
[2021-06-12] MEDS ORDERED: CLARITIN PO SCH (09:00)
[2021-06-12] MEDS: ASPIRIN PO SCH (09:07)
[2021-06-12] MEDS: PROTONIX PO SCH (09:07)
[2021-06-12] MEDS: ELIQUIS PO SCH (09:07)
--- NOTE | 2021-06-12 09:57 | DIET.OP ---
Nutrition Asmt/Malnutrit 2-17 Actual Date of Review: Jun 12, 2021 Actual Time Reviewed Asmt: 09:55 Nutritional Screening: Malnutr/Diet Consult Diagnosis: Atrial Fib, NSTEMI Pertinent Medical Hx/Surgical: DM, CKD stage 4 Subjective Information: 61 yo F, Atrial Fib, renal function trending better per MD notes. Current Diet Order/Nutrition S: 2 gm Na+, low fat, low cholesterol Patient /S.O: Not Indicated Pertinent Meds Lipitor, Ativan, Protonix, Humulog Pertinent Labs Hgb 10.5L, Hct 32.9L, Glu 113H, Na+140, K+ 4.2, Cl 107, BUN 69K, Cr 3.14H, Ca 8.5, Height (Inches): 63 %IBW: 207 Recent Weight Change: No Weight Status: Morbid Obese GI Symptoms: Last BM (06/12/2021) Food Allergies: No Cultural/Ethnic/Anglican Oralia: unable ot obtain Skin Integrity/Comment: Yes Current %PO: Fair(50-74%) (81% x 5 meals) BEE in Kcals: Use Current Weight, Adj WT of IBW Calories/Kcals/K-14 Kcals Calculated: 3017-9000 Protein: Use Current Weight Protein g/kg: .06-.08 Protein Calculated: 65-86 Fluid: ml: [id number] or per MD Nutritional Problem: Nutr. Problems Present Problems: Overweight/Obesity Etiology: Escessive Enery Intake Signs/Symptoms: BMI above normal for standard and age Food and Nutrition Intake (Mod: <75% est energy req 7days (61% x 5 meals) Protein-Calorie Malnutrition: N/A Is there a minimum of two crit: No Malnutrition related to morbid: Weight 200% of ideal wt RD Comments: low nutrition risk, continue w current plan Expected Outcomes stable w/adequate hydration, lab values WNL, skin integrity, nutrition needs met within 3 days Malnutrtion/Nutrition Risk Edu: No RD Follow-Up Date: Jun 19, 2021 Notificiation Needed?: No ROBB GOODMAN Jun 12, 2021 09:57
[2021-06-12] MEDS: ULTRAM PO PRN (12:17)
[2021-06-12 12:18] VITALS: BP 106/42
[2021-06-12] MEDS: REQUIP PO SCH (13:45)
--- NOTE | 2021-06-12 13:46 | NUR ---
PRESCRIPTIONS PRESCRIPTIONS CALLED INTO [facility] IN [place], [place] AT THIS TIME BY THIS NURSE.
[2021-06-12] MEDS ORDERED: ATOR20TA PO (13:48)
--- NOTE | 2021-06-12 13:49 | PRM.DC ---
Discharge Summary Date of Discharge: Jun 12, 2021 Time of Request to Discharge: 13:48 Hospital Course 70-year-old female with past medical history of coronary artery disease, cardiac stent, hypertension, diabetes, chronic kidney disease stage IV, hyperlipidemia, among others presented to an outside emergency room with shortness of breath and chest pain for the last 3 days. Work-up in the emergency room patient was found to be in A. fib with RVR with heart rate in the 170s. High-sensitivity troponin elevated. Requested transfer the patient to our medical facility for further management and cardiology consultation. In the emergency room patient received metoprolol, Plavix, Lovenox. When the patient arrived to our intensive care unit patient was still in A. fib with RVR with heart rate in the 140s. Supervisor Case Loading consulted. Patient is being admitted hospital for further management. Cardiology cleared for discharge and renal assisted with management of renal function until creatinine was trending down, patient discharged with close outpatient renal follow up Patient History: Alzheimer's disease G8 SISTER Cerebrovascular disorder G8 MOTHER G8 FATHER Chronic obstructive pulmonary disease G8 BROTHER Congestive heart failure G8 MOTHER G8 FATHER Diabetes mellitus G8 MOTHER G8 FATHER FH: [place] (myocardial infarction) G8 MOTHER G8 FATHER G8 BROTHER FH: cancer G8 BROTHER G8 SISTER G8 SISTER FH: cancer G8 BROTHER G8 SISTER G8 SISTER Unknown General: Alert HEENT: Atraumatic, PERRLA, Mucous membr. moist/pink Neck: Supple Lungs: Clear to auscultation Heart: Regular rate Abdomen: Soft, No tenderness Extremities: No cyanosis Neuro: Strength at 5/5 X4 ext Psych/Mental Status: Mental status NL Scheduled Atorvastatin 20MG (Lipitor 20MG), 20 MG PO HS Sepsis Evaluation @ Discharge Laboratory Tests Test 06/09/21 06:13 06/09/21 08:19 06/09/21 11:16 06/09/21 16:05 Bedside Glucose 119 144 122 White Blood Count 10.2 10^3/uL Red Blood Count 3.95 10^6/uL Hemoglobin 11.5 g/dL Hematocrit 36.6 % Mean Corpuscular Volume 92.7 fL Mean Corpuscular Hemoglobin 29.1 pg Mean Corpuscular Hemoglobin Concent 31.4 g/dL Red Cell Distribution Width 14.5 % Platelet Count 202 10^3/uL Mean Platelet Volume 11.2 fL Sodium Level 139 mmol/L Potassium Level 3.9 mmol/L Chloride Level 106.0 mmol/L Carbon Dioxide Level 23.0 mmol/L Glucose Level 126 mg/dL Blood Urea Nitrogen 54 mg/dL Creatinine 3.19 mg/dL Calcium Level 8.7 mg/dL Anion Gap 13.9 Estimated GFR () 17.4 Est GFR (CKD-EPI)(Non-Afr Maltese) 14.4 BUN/Creatinine Ratio 16.0 Test 06/09/21 21:06 06/10/21 05:35 06/10/21 11:55 06/10/21 17:02 Bedside Glucose 124 129 102 White Blood Count 8.7 10^3/uL Red Blood Count 3.76 10^6/uL Hemoglobin 11.1 g/dL Hematocrit 35.0 % Mean Corpuscular Volume 93.1 fL Mean Corpuscular Hemoglobin 29.5 pg Mean Corpuscular Hemoglobin Concent 31.7 g/dL Red Cell Distribution Width 14.5 % Platelet Count 184 10^3/uL Mean Platelet Volume 11.6 fL Neutrophils (%) (Auto) 71.9 % Lymphocytes (%) (Auto) 20.0 % Monocytes (%) (Auto) 5.7 % Neutrophils # (Auto) 6.3 10^3/uL Lymphocytes # (Auto) 1.75 10^3/uL1 Monocytes # (Auto) 0.5 10^3/uL Absolute Immature Granulocyte (auto 0.02 10^3 u/L Absolute Eosinophils (auto) 0.2 10^3/uL Immature Granulocytes % 0.20 % Eosinophils % 1.9 % Basophils % 0.3 % Basophils # 0.0 10^3/uL Sodium Level 138 mmol/L Potassium Level 3.9 mmol/L Chloride Level 105.0 mmol/L Carbon Dioxide Level 21.5 mmol/L Anion Gap 15.4 Blood Urea Nitrogen 69 mg/dL Creatinine 3.59 mg/dL Estimated GFR () 15.2 Est GFR (CKD-EPI)(Non-Afr Maltese) 12.6 BUN/Creatinine Ratio 19.0 Glucose Level 123 mg/dL Calcium Level 8.7 mg/dL Total Bilirubin 0.3 mg/dL Aspartate Amino Transf (AST/SGOT) 12 U/L Alanine Aminotransferase (ALT/SGPT) 16 U/L Alkaline Phosphatase 102 U/L Total Protein 6.8 g/dL Albumin 2.6 g/dL Globulin 4.2 Albumin/Globulin Ratio 0.619 Test 06/10/21 20:03 Bedside Glucose 111 Current Medications Medications (Trade) Dose Ordered Sig/Deloris PRN Reason Start Time Stop Time Status Last Admin Dextrose (Dextrose 10%-Water Iv Solution) 125 ml PRN PRN hypoglycemia 06/10/21 14:25 07/06/21 19:59 Hydrocortisone (Analpram 2.5%) 1 gm BID PRN ITCHING 06/10/21 22:00 07/10/21 21:59 Ropinirole HCl (Requip) 0.5 mg HS 06/09/21 21:00 07/09/21 20:59 06/10/21 20:23 Tramadol HCl (Ultram) 50 mg Q6 PRN PAIN 4 - 6 06/09/21 16:30 07/09/21 16:29 06/10/21 09:18 Course Sepsis Screening Results: Posi: NEGATIVE Sepsis Qualifier/Stage: NO DEFINITE RISK Vitals & review Data Laboratory Tests Test 06/09/21 06:13 06/09/21 08:19 06/09/21 11:16 06/09/21 16:05 Bedside Glucose 119 144 122 White Blood Count 10.2 10^3/uL Red Blood Count 3.95 10^6/uL Hemoglobin 11.5 g/dL Hematocrit 36.6 % Mean Corpuscular Volume 92.7 fL Mean Corpuscular Hemoglobin 29.1 pg Mean Corpuscular Hemoglobin Concent 31.4 g/dL Red Cell Distribution Width 14.5 % Platelet Count 202 10^3/uL Mean Platelet Volume 11.2 fL Sodium Level 139 mmol/L Potassium Level 3.9 mmol/L Chloride Level 106.0 mmol/L Carbon Dioxide Level 23.0 mmol/L Glucose Level 126 mg/dL Blood Urea Nitrogen 54 mg/dL Creatinine 3.19 mg/dL Calcium Level 8.7 mg/dL Anion Gap 13.9 Estimated GFR () 17.4 Est GFR (CKD-EPI)(Non-Afr Maltese) 14.4 BUN/Creatinine Ratio 16.0 Test 06/09/21 21:06 06/10/21 05:35 06/10/21 11:55 06/10/21 17:02 Bedside Glucose 124 129 102 White Blood Count 8.7 10^3/uL Red Blood Count 3.76 10^6/uL Hemoglobin 11.1 g/dL Hematocrit 35.0 % Mean Corpuscular Volume 93.1 fL Mean Corpuscular Hemoglobin 29.5 pg Mean Corpuscular Hemoglobin Concent 31.7 g/dL Red Cell Distribution Width 14.5 % Platelet Count 184 10^3/uL Mean Platelet Volume 11.6 fL Neutrophils (%) (Auto) 71.9 % Lymphocytes (%) (Auto) 20.0 % Monocytes (%) (Auto) 5.7 % Neutrophils # (Auto) 6.3 10^3/uL Lymphocytes # (Auto) 1.75 10^3/uL1 Monocytes # (Auto) 0.5 10^3/uL Absolute Immature Granulocyte (auto 0.02 10^3 u/L Absolute Eosinophils (auto) 0.2 10^3/uL Immature Granulocytes % 0.20 % Eosinophils % 1.9 % Basophils % 0.3 % Basophils # 0.0 10^3/uL Sodium Level 138 mmol/L Potassium Level 3.9 mmol/L Chloride Level 105.0 mmol/L Carbon Dioxide Level 21.5 mmol/L Anion Gap 15.4 Blood Urea Nitrogen 69 mg/dL Creatinine 3.59 mg/dL Estimated GFR () 15.2 Est GFR (CKD-EPI)(Non-Afr Maltese) 12.6 BUN/Creatinine Ratio 19.0 Glucose Level 123 mg/dL Calcium Level 8.7 mg/dL Total Bilirubin 0.3 mg/dL Aspartate Amino Transf (AST/SGOT) 12 U/L Alanine Aminotransferase (ALT/SGPT) 16 U/L Alkaline Phosphatase 102 U/L Total Protein 6.8 g/dL Albumin 2.6 g/dL Globulin 4.2 Albumin/Globulin Ratio 0.619 Test 06/10/21 20:03 Bedside Glucose 111 Current Medications Medications (Trade) Dose Ordered Sig/Deloris PRN Reason Start Time Stop Time Status Last Admin Dextrose (Dextrose 10%-Water Iv Solution) 125 ml PRN PRN hypoglycemia 06/10/21 14:25 07/06/21 19:59 Hydrocortisone (Analpram 2.5%) 1 gm BID PRN ITCHING 06/10/21 22:00 07/10/21 21:59 Ropinirole HCl (Requip) 0.5 mg HS 06/09/21 21:00 3/13/22 20:59 06/10/21 20:23 Tramadol HCl (Ultram) 50 mg Q6 PRN PAIN 4 - 6 06/09/21 16:30 07/09/21 16:29 06/10/21 09:18 LEVEL 1 SEPSIS INFECTION CRITE: Cough/Shortness of Breath, Recent Invasive Pro cedure Cardiovascular Evidence: Not Assessed or None Hematologic Evidence: None/Not assessed Hepatic Evidence: None/Not assessed Metabolic Evidence: None/Not assessed Neurological Evidence: None/Not assessed Respiratory Evidence: None/Not assessed Renal Evidence: Creatinine Lvl>2.0 O2 Sat by Pulse Oximetry: 91 Oxygen Flow Rate: 2.00 Plan Assessment Plan as per director supply At this time, no coronary intervention is needed. Aggressive lifestyle modification changes have been strongly advised. The patient will certainly benefit from statin therapy (Atorvastatin ordered). Continue to monitor kidney function sotalol for rate control Appreciate nephrology input Nephrology Recommendations: YARED on CKD +/- ARMAND - Cr continues to worsen overall as might be expected - Again, hoping we are seeing slowed rate of rise. Cr 3.19 -> 3.59 -> 3.76-->3.14 - Electrolytes and acid/base are balanced - Continue to hold DINESH/Lasix - UOP fair. Volume acceptable - No need for NEUROSURGEON. Will continue to monitor - Simply looking for a plateau in Cr at which time we can start DC planning with close f/u - It's possible for Pt to be DCd with very close lab follow-up, however, she does not have a PCP and her primary Barrel Assembler Helper comes to town once a month or so. - It would be best to follow another day or two in house until the Cr starts a down-trend and there is no evidence of uncontrolled polyuria Thank You! Jay [facility] [phone] (c) [phone] (o DVT prophylaxis with Eliquis and SCDs, GI prophylaxis with Protonix FULL CODE SHYANN FLEMING MD Jun 12, 2021 13:49
[2021-06-12 18:30] VITALS: BP 106/42
[2021-06-13] MEDS ORDERED: BETAPACE PO SCH (09:00)
== END 2021-06-12 18:36 | disposition home or self-care (01) | DRG 281 ==
LOC: ICU 18:12 → MS 06-08 20:48
PROVIDERS: ADMIT Internal Medicine; ATTEND Family Medicine
PROC: 05HY33Z Insertion of Infusion Device into Upper Vein, Percutaneous Approach (ICD-10-PCS; 2021-06-07)
PROC: B2151ZZ Fluoroscopy of Left Heart using Low Osmolar Contrast (ICD-10-PCS; 2021-06-08)
PROC: 4A023N7 Measurement of Cardiac Sampling and Pressure, Left Heart, Percutaneous Approach (ICD-10-PCS; 2021-06-08)
PROC: B2111ZZ Fluoroscopy of Multiple Coronary Arteries using Low Osmolar Contrast (ICD-10-PCS; principal; 2021-06-08 11:00)
DX: I21.4 Non-ST elevation (NSTEMI) myocardial infarction (principal); I13.0 Hypertensive heart and chronic kidney disease with heart failure and stage 1 through stage 4 chronic kidney disease, or unspecified chronic kidney disease; N18.4 Chronic kidney disease, stage 4 (severe); Z68.41 Body mass index [BMI] 40.0-44.9, adult; N17.9 Acute kidney failure, unspecified; I48.91 Unspecified atrial fibrillation; I25.10 Atherosclerotic heart disease of native coronary artery without angina pectoris; E78.5 Hyperlipidemia, unspecified; I50.9 Heart failure, unspecified; E66.01 Morbid (severe) obesity due to excess calories; I95.9 Hypotension, unspecified; N87.9 Dysplasia of cervix uteri, unspecified; D64.9 Anemia, unspecified; E10.22 Type 1 diabetes mellitus with diabetic chronic kidney disease; Z79.4 Long term (current) use of insulin; Z95.5 Presence of coronary angioplasty implant and graft; Z82.49 Family history of ischemic heart disease and other diseases of the circulatory system; Z88.2 Allergy status to sulfonamides; Z82.0 Family history of epilepsy and other diseases of the nervous system; Z82.5 Family history of asthma and other chronic lower respiratory diseases
CPT/HCPCS: 36415; 36569; 71045; 72040; 72170; 80048; 80053; 81001; 82948; 83735; 83880; 84443; 84484; 85025; 85027; 85730; 93005; 93306; 93458; 99152; C1760; C1769; C1894; G0378; J1644; J1940; J2250; J2270; J3010; J3490; J7030; J7050; J7060; Q9967; J0282; Q9966